=== PATIENT | female | born 1975 | race Caucasian/White ===

== ENCOUNTER → 2017-01-17 | Outpatient (CLI) | payer MEDICARE, MEDICAID ==
[~2017-01-17] MED LIST: ASPI325T4 PO; CARV12.5 PO; CARV3.12T PO; CEFU500T5 PO; CPR500T PO; EFFEXOR PO; FRSM40T PO; FURO40TA4 PO; FURO80TA3 PO; IBUP200C PO; LEVO100T4 PO; LEVO750T6 PO; LEVOTHYROXINE PO; MAGN400T6 PO; MELO-195 PO; METO25TA PO; MGX400T PO; NAPR220T76 PO; OXYC-12 PO; POTA10CA43 PO; TRM50T PO; VENL150C PO; VENL150C53 PO
--- NOTE | 2017-01-17 15:59 | Diagnostic Imaging Report ---
Bilateral diagnostic mammogram. The current study was also evaluated with a Computer Aided Detection (CAD) system. INDICATION: Left breast discharge. COMPARISON: No prior studies are available for comparison. This is a baseline exam. FINDINGS: There is a pacemaker projecting over the left axillary region. The breasts are composed of scattered fibroglandular densities slightly more dense in the outer aspect of each breast. Scattered benign-appearing calcifications are seen. There is no discrete mass or architectural distortion. No suspicious cluster of calcification. IMPRESSION: No mammographic evidence of malignancy. Ultrasound evaluation pending. ACR BI-RADS Category 0: Incomplete. (Needs additional imaging evaluation). Result letter will be mailed to the patient. Note: At least 10% of breast cancer is not imaged by mammography. Dictated by: Dictated on workstation # [id number]
--- NOTE | 2017-01-17 18:16 | Diagnostic Imaging Report ---
EXAMINATION: Left breast ultrasound. INDICATION: Left nipple discharge. FINDINGS: The four quadrants and retroareolar region of the left breast were scanned with no underlying abnormality seen. IMPRESSION: Negative study. Consider cytology evaluation of the nipple discharge, and if needed evaluation with MRI of the breast. ACR BI-RADS Category 1: Negative. Result letter will be mailed to the patient. Note: At least 10% of breast cancer is not imaged by mammography. Dictated by: Dictated on workstation # [id number]
== END ==
LOC: RAD 07:28
PROVIDERS: ATTEND Family Medicine
DX: N64.52 Nipple discharge (principal)
CPT/HCPCS: 76641; 77066

== ENCOUNTER → 2018-01-21 | Outpatient (CLI) | payer MEDICARE, MEDICAID ==
[~2018-01-21] MED LIST changes: +IOHEXOL 350 MG/ML 150 ML (OMNIPAQUE 350) VIAL IV ONE; +NS 250 ML (IVPB) BAG IV ONE
--- NOTE | 2018-01-21 09:29 | Diagnostic Imaging Report ---
PROCEDURE: CT angiography of the chest with contrast. TECHNIQUE: Multiple contiguous axial images were obtained through the chest after uneventful bolus administration of intravenous contrast. Reconstructed CTA MIP acquisitions were also performed. INDICATION: Shortness of breath, hypertension, history of congestive heart failure. CORRELATION STUDY: 02/09/2015. FINDINGS: The heart size is enlarged. A left-sided AICD is present. There is slight ectasia of the ascending aorta, unchanged at 4.2 cm. No intraluminal abnormality. No definitive pulmonary artery filling defect to reflect pulmonary embolism. There is no pathologically enlarged mediastinal and/or hilar lymph nodes. An enlarged thyroid gland is again demonstrated. A large low-density mass of the right lobe appears generally stable measuring 3.4 x 2.8 cm. This does result in some contour deformity and compression upon the trachea. The lung aldana are with groundglass opacities which may be reflective of mild edema. No focal infiltrate. No significant pleural effusion. The visualized portions of the upper abdomen demonstrate gallstones. A calcified gallbladder wall is not excluded. The thoracic spine demonstrates a fusion across T9-T10. IMPRESSION: 1. Cardiac enlargement. 2. Mild groundglass opacities could be reflective of mild edema. No infiltrate. 3. No CT evidence of pulmonary embolism. 4. Right thyroid lobe mass. There has been reported prior biopsy in July 2014. 5. Cholelithiasis. Underlying gallbladder wall calcification, a porcelain gallbladder, is not excluded. Consideration for gallbladder ultrasound imaging is recommended. Dictated by: Dictated on workstation # [id number]
== END ==
LOC: RAD 07:45
PROVIDERS: ATTEND Internal Medicine Cardiovascular Disease
DX: I11.0 Hypertensive heart disease with heart failure (principal); I50.22 Chronic systolic (congestive) heart failure; I51.7 Cardiomegaly; R79.89 Other specified abnormal findings of blood chemistry; F32.9 Major depressive disorder, single episode, unspecified; R06.02 Shortness of breath; R91.8 Other nonspecific abnormal finding of lung field; E07.89 Other specified disorders of thyroid; K57.00 Diverticulitis of small intestine with perforation and abscess without bleeding; K80.00 Calculus of gallbladder with acute cholecystitis without obstruction
CPT/HCPCS: 71275

== ENCOUNTER 2018-10-04 11:19 | Emergency (ER) | payer MEDICARE, MEDICAID ==
[~2018-10-04] VITALS: Ht 149.9 cm; Wt 115.7 kg
[~2018-10-04 11:19] MED LIST changes: -IOHEXOL 350 MG/ML 150 ML (OMNIPAQUE 350) VIAL IV ONE; -NS 250 ML (IVPB) BAG IV ONE
--- OUTSIDE RECORDS SUMMARY | 2018-10-04 11:24 | XMS REPORT ---
Author FAIZA De La Cruz [facility] eClinicalWorks Address Unknown Phone Unavailable Care Team Providers Care Pick Up And Delivery Driver Name Role Phone FAIZA SNIDER CP Unavailable Allergies, Adverse Reactions, Alerts Substance Reaction Event Type JIMMIE inhibitors Info Not Available Non Drug Allergy Problems Problem Type Condition Code Onset Dates Condition Status Assessment Right foot pain M79.671 Active Medications Medication Code System Code Instructions Start Date End Date Status Dosage Mag-Oxide NDC 0 400 MG Orally 2 times a day not defined Carvedilol [facility] [address]-40 12.5 MG Orally 2 times a day not defined Levothyroxine Sodium [facility] [address]-15 100 MCG Orally Once a day 1 [place] [address]-36 80 MG Orally 2 times a day 1 tablet Aspirin [facility] [address]-97 325 MG Orally Once a day 1 tablet Potassium Chloride [facility] [address]-87 10 MEQ Orally Once a day 2 capsule Procedures Procedure Coding System Code Date Office Visit, New Pt., Level 3 CPT-4 07669 Sep 14, 2015 [facility] VISIT NEW PATIENT CPT-4 G0466 Sep 14, 2015 Vital Signs Date/Time: Sep 14, 2015 Temperature 97.7 F Weight 264.2 lbs Height 61 in BMI 49.91 Index Blood Pressure Diastolic 90 mmHg Blood Pressure Systolic 122 mmHg Cardiac Monitoring Heart Rate 88 bpm Results No Known Results Summary Purpose eClinicalWorks Submission
--- OUTSIDE RECORDS SUMMARY | 2018-10-04 11:26 | XMS REPORT | Continuity of Care Document ---
Author Author [facility] Organization [facility] Address Unknown Phone Unavailable Allergies Active Description Code Type Severity Reaction Onset Reported/Identified Relationship to Patient Clinical Status Yes No Known Drug Allergies [id number] Drug Allergy Unknown N/A 08/06/2014 Medications There is no data. Problems Date Dx Coded Attending Type Code Diagnosis Diagnosed By 11/10/2008 Ot 327.23 05/21/2010 Ot 599.0 05/21/2010 Ot 788.1 06/15/2010 Ot 789.09 08/09/2014 SUMI DOAN MD Ot 240.9 08/09/2014 SUMI DOAN MD Ot 244.9 08/09/2014 SUMI DOAN MD Ot 275.2 08/09/2014 SUMI DOAN MD Ot 278.01 08/09/2014 SUMI DOAN MD Ot 311 08/09/2014 SUMI DOAN MD Ot 327.23 08/09/2014 SUMI DOAN MD Ot 401.9 08/09/2014 SUMI DOAN MD Ot 425.4 08/09/2014 SUMI DOAN MD Ot 428.0 08/09/2014 SUMI DOAN MD Ot 428.21 08/09/2014 SUMI DOAN MD Ot 429.89 08/09/2014 SUMI DOAN MD Ot 553.1 08/09/2014 SUMI DOAN MD Ot 574.20 08/09/2014 SUMI DOAN MD Ot V85.43 09/08/2014 Ot 246.9 09/08/2014 Ot 246.9 09/08/2014 Ot 719.49 09/08/2014 Ot 246.9 09/08/2014 Ot 241.0 09/08/2014 Ot 241.0 09/08/2014 Ot 245.9 09/08/2014 Ot 729.5 09/08/2014 Ot 241.0 09/08/2014 Ot 240.9 09/08/2014 Ot 241.0 09/08/2014 COLEEN CAR DO Ot 553.20 09/08/2014 COLEEN CAR DO Ot 789.00 09/08/2014 ОЛЬГА SERNA MD Ot 241.0 09/08/2014 COLEEN CAR DO Ot 780.79 09/08/2014 COLEEN CAR DO Ot 782.3 09/09/2014 DAPHNE VINSON, ОЛЬГА [place] Ot 241.0 09/26/2014 SUMI DOAN MD Ot 327.23 OBSTRUCTIVE SLEEP APNEA (ADULT) (PEDIATR 10/05/2014 FRANKI VINSON, SUMI Greco Ot 396.3 10/05/2014 SUMI DOAN MD Ot 397.0 10/05/2014 SUMI DOAN MD Ot 401.9 10/05/2014 SUMI DOAN MD Ot 428.0 10/05/2014 SUMI DOAN MD Ot 786.05 10/05/2014 SUMI DOAN MD Ot 793.2 10/06/2014 Ot 246.9 10/06/2014 Ot 246.9 10/06/2014 Ot 719.49 10/06/2014 Ot 246.9 10/06/2014 Ot 241.0 10/06/2014 Ot 241.0 10/06/2014 Ot 245.9 10/06/2014 Ot 729.5 10/06/2014 Ot 241.0 10/06/2014 Ot 240.9 10/06/2014 Ot 241.0 10/06/2014 COLEEN CAR DO Ot 553.20 10/06/2014 COLEEN CAR DO Ot 789.00 10/06/2014 ОЛЬГА SERNA MD Ot 242.90 10/06/2014 DAPHNE VINSON, ОЛЬГА [place] Ot 574.20 10/06/2014 ОЛЬГА SERNA MD Ot 780.79 10/06/2014 ОЛЬГА SERNA MD Ot 786.05 10/06/2014 ОЛЬГА SERNA MD Ot 789.00 10/06/2014 DAPHNE VINSON, ОЛЬГА [place] Ot 241.0 10/06/2014 ОЛЬГА SERNA MD Ot 241.0 10/06/2014 COLEEN CAR DO Ot 780.79 10/06/2014 GELLENDER DOCOLEEN Ot 782.3 10/06/2014 GELLENDER DOCOLEEN Ot 553.20 10/06/2014 PINALENDER DOCOLEEN Ot 789.00 10/06/2014 GELLENDER DOCOLEEN Ot 553.20 10/06/2014 PINALENDER DOCOLEEN Ot 789.00 10/06/2014 Ot 246.9 10/06/2014 Ot 246.9 10/06/2014 Ot 719.49 10/06/2014 Ot 246.9 10/06/2014 Ot 241.0 10/06/2014 Ot 241.0 10/06/2014 Ot 245.9 10/06/2014 Ot 729.5 10/06/2014 Ot 241.0 10/06/2014 Ot 240.9 10/06/2014 Ot 241.0 10/06/2014 COLEEN CAR DO Ot 553.20 10/06/2014 PINALENDER COLEEN PRETTY Ot 789.00 10/06/2014 DAPHNE VINSON, ОЛЬГА [place] Ot 241.0 10/06/2014 COLEEN CAR DO Ot 780.79 10/06/2014 PINALENDER COLEEN PRETTY Ot 782.3 10/06/2014 FRANKI VINSON, SUMI Greco Ot 396.3 10/06/2014 FRANKI VINSON, SUMI Greco Ot 397.0 10/06/2014 FRANKI VINSON, SUMI Greco Ot 401.9 10/06/2014 FRANKI VINSON, SUMI Greco Ot 428.0 10/06/2014 FRANKI VINSON, SUMI Greco Ot 786.05 10/06/2014 FRANKI VINSON, SUMI Greco Ot 793.2 10/06/2014 COLEEN CAR DO Ot 553.20 10/06/2014 CARRINGTONDER COLEEN PRETTY Ot 789.00 12/11/2014 Ot 241.0 12/11/2014 Ot 241.0 12/11/2014 Ot 245.9 12/11/2014 Ot 729.5 12/11/2014 Ot 241.0 12/11/2014 Ot 240.9 12/11/2014 Ot 241.0 12/11/2014 CARRINGTONDER COLEEN PRETTY Ot 553.20 12/11/2014 PINALENDER COLEEN PRETTY Ot 789.00 12/11/2014 DAPHNE VINSON, ОЛЬГА [place] Ot 241.0 12/11/2014 COLEEN CAR DO Ot 780.79 12/11/2014 COLEEN CAR DO Ot 782.3 12/11/2014 SUMI DOAN MD Ot 396.3 12/11/2014 SUMI DOAN MD Ot 397.0 12/11/2014 SUMI DOAN MD Ot 401.9 12/11/2014 SUMI DOAN MD Ot 428.0 12/11/2014 SUMI DOAN MD Ot 786.05 12/11/2014 SUMI DOAN MD Ot 793.2 12/16/2014 Ot 244.9 HYPOTHYROIDISM NOS 12/16/2014 Ot 278.01 MORBID OBESITY 12/16/2014 Ot 327.23 OBSTRUCTIVE SLEEP APNEA (ADULT) (PEDIATR 12/16/2014 Ot 396.3 MITRAL/ AORTIC NICK INSUFF 12/16/2014 Ot 401.9 HYPERTENSION NOS 12/16/2014 Ot 425.4 PRIM CARDIOMYOPATHY NEC 12/16/2014 Ot 428.0 CONGESTIVE HEART FAILURE NOS 12/16/2014 Ot 428.22 CHRONIC SYSTOLIC HRT FAILURE 12/16/2014 Ot 786.09 RESPIRATORY ABNORM NEC 12/16/2014 Ot V58.69 OTH MED,LT, CURRENT USE 12/16/2014 Ot V85.42 BODY MASS INDEX 45.0-49.9, ADULT 12/17/2014 SUMI DOAN MD Ot 396.3 12/17/2014 SUMI DOAN MD Ot 397.0 12/17/2014 SUMI DOAN MD Ot 401.9 12/17/2014 SUMI DOAN MD Ot 428.0 12/17/2014 SUMI DOAN MD Ot 786.05 12/17/2014 SUMI DOAN MD Ot 793.2 01/28/2015 SUMI DOAN MD Ot 244.9 HYPOTHYROIDISM NOS 01/28/2015 SUMI DOAN MD Ot 272.4 HYPERLIPIDEMIA NEC/NOS 01/28/2015 SUMI DOAN MD Ot 278.01 MORBID OBESITY 01/28/2015 SUMI DOAN MD Ot 401.9 HYPERTENSION NOS 01/28/2015 SUMI DOAN MD Ot 425.4 PRIM CARDIOMYOPATHY NEC 01/28/2015 SUMI DOAN MD Ot 428.0 CONGESTIVE HEART FAILURE NOS 01/28/2015 FRANKI VINSON, SUMI Greco Ot 428.22 CHRONIC SYSTOLIC HRT FAILURE 01/28/2015 SUMI DOAN MD Ot 782.3 EDEMA 01/28/2015 SUMI DOAN MD Ot 786.50 CHEST PAIN NOS 01/28/2015 SUMI DOAN MD Ot V58.69 OTH MED,LT,CURRENT USE 01/28/2015 SUMI DOAN MD Ot V85.42 BODY MASS INDEX 45.0-49.9, ADULT 02/09/2015 SUMI DOAN MD Ot 396.3 02/09/2015 SUMI DOAN MD Ot 397.0 02/09/2015 SUMI DOAN MD Ot 401.9 02/09/2015 SUMI DOAN MD Ot 428.0 02/09/2015 SUMI DOAN MD Ot 786.05 02/09/2015 SUMI DOAN MD Ot 793.2 03/12/2015 SUMI DOAN MD Ot 240.9 03/12/2015 SUMI DOAN MD Ot 574.20 03/12/2015 SUMI DOAN MD Ot 786.6 03/17/2015 GELLENDER DO, COLEEN A Ot 038.11 03/17/2015 GELLENDER DO, COLEEN A Ot 244.9 03/17/2015 GELLENDER DO, COLEEN A Ot 272.0 03/17/2015 GELLENDER DO, COLEEN Landry Ot 287.5 03/17/2015 GELLENDER DO, COLEEN A Ot 311 03/17/2015 GELLENDER DO, COLEEN A Ot 396.3 03/17/2015 GELLENDER DO, COLEEN A Ot 397.0 03/17/2015 GELLENDER DO, COLEEN A Ot 401.9 03/17/2015 GELLENDER DO, COLEEN A Ot 425.4 03/17/2015 GELLENDER DO, COLEEN A Ot 428.0 03/17/2015 GELLENDER DO, COLEEN A Ot 707.9 03/17/2015 GELLENDER DO, COLEEN A Ot 710.0 03/17/2015 GELLENDER DO, COLEEN A Ot 723.1 03/17/2015 GELLENDER DO, COLEEN A Ot 780.57 03/17/2015 GELLENDER DO, COLEEN A Ot 995.91 03/17/2015 GELLENDER DO, COLEEN A Ot V45.02 03/17/2015 GELLENDER DO, COLEEN A Ot 038.11 03/17/2015 GELLENDER DO, COLEEN A Ot 244.9 03/17/2015 GELLENDER DO, COLEEN A Ot 272.0 03/17/2015 GELLENDER DO, COLEEN A Ot 287.5 03/17/2015 GELLENDER DO, COLEEN A Ot 311 03/17/2015 GELLENDER DO, COLEEN A Ot 396.3 03/17/2015 GELLENDER DO, COLEEN A Ot 397.0 03/17/2015 GELLENDER DO, COLEEN A Ot 401.9 03/17/2015 GELLENDER DO, COLEEN A Ot 425.4 03/17/2015 GELLENDER DO, COLEEN A Ot 428.0 03/17/2015 GELLENDER DO, COLEEN A Ot 707.9 03/17/2015 GELLENDER DO, COLEEN A Ot 710.0 03/17/2015 GELLENDER DO, COLEEN A Ot 723.1 03/17/2015 GELLENDER DO, COLEEN A Ot 780.57 03/17/2015 GELLENDER DO, COLEEN A Ot 995.91 03/17/2015 GELLENDER DO, COLEEN A Ot V45.02 03/18/2015 GELLENDER DO, COLEEN A Ot 038.11 03/18/2015 GELLENDER DO, COLEEN A Ot 244.9 03/18/2015 GELLENDER DO, COLEEN A Ot 272.0 03/18/2015 GELLENDER DO, COLEEN A Ot 287.5 03/18/2015 GELLENDER DO, COLEEN A Ot 311 03/18/2015 GELLENDER DO, COLEEN A Ot 396.3 03/18/2015 GELLENDER DO, COLEEN A Ot 397.0 03/18/2015 GELLENDER DO, COLEEN A Ot 401.9 03/18/2015 GELLENDER DO, COLEEN A Ot 425.4 03/18/2015 GELLENDER DO, COLEEN A Ot 428.0 03/18/2015 GELLENDER DO, COLEEN A Ot 707.9 03/18/2015 GELLENDER DO, COLEEN A Ot 710.0 03/18/2015 GELLENDER DO, COLEEN A Ot 723.1 03/18/2015 GELLENDER DO, COLEEN A Ot 780.57 03/18/2015 GELLENDER DO, COLEEN A Ot 995.91 03/18/2015 GELLENDER DO, COLEEN A Ot V45.02 03/18/2015 GELLENDER DO, COLEEN A Ot 038.11 03/18/2015 GELLENDER DO, COLEEN A Ot 244.9 03/18/2015 GELLENDER DO, COLEEN A Ot 272.0 03/18/2015 GELLENDER DO, COLEEN A Ot 287.5 03/18/2015 GELLENDER DO, COLEEN A Ot 311 03/18/2015 GELLENDER DO, COLEEN A Ot 396.3 03/18/2015 GELLENDER DO, COLEEN A Ot 397.0 03/18/2015 GELLENDER DO, COLEEN A Ot 401.9 03/18/2015 GELLENDER DO, COLEEN A Ot 425.4 03/18/2015 GELLENDER DO, COLEEN A Ot 428.0 03/18/2015 GELLENDER DO, COLEEN A Ot 707.9 03/18/2015 GELLENDER DO, COLEEN A Ot 710.0 03/18/2015 GELLENDER DO, COLEEN A Ot 723.1 03/18/2015 GELLENDER DO, COLEEN A Ot 780.57 03/18/2015 GELLENDER DO, COLEEN A Ot 995.91 03/18/2015 GELLENDER DO, COLEEN A Ot V45.02 03/18/2015 GELLENDER DO, COLEEN A Ot 038.11 03/18/2015 GELLENDER DO, COLEEN A Ot 244.9 03/18/2015 GELLENDER DO, COLEEN A Ot 272.0 03/18/2015 GELLENDER DO, COLEEN A Ot 287.5 03/18/2015 GELLENDER DO, COLEEN A Ot 311 03/18/2015 GELLENDER DO, COLEEN A Ot 396.3 03/18/2015 GELLENDER DO, COLEEN A Ot 397.0 03/18/2015 GELLENDER DO, COLEEN A Ot 401.9 03/18/2015 GELLENDER DO, COLEEN A Ot 425.4 03/18/2015 GELLENDER DO, COLEEN A Ot 428.0 03/18/2015 GELLENDER DO, COLEEN A Ot 707.9 03/18/2015 GELLENDER DO, COLEEN A Ot 710.0 03/18/2015 GELLENDER DO, COLEEN A Ot 723.1 03/18/2015 GELLENDER DO, COLEEN A Ot 780.57 03/18/2015 GELLENDER DO, COLEEN A Ot 995.91 03/18/2015 GELLENDER DO, COLEEN A Ot V45.02 03/19/2015 GELLENDER DO, COLEEN A Ot 038.11 03/19/2015 GELLENDER DO, COLEEN A Ot 244.9 03/19/2015 GELLENDER DO, COLEEN A Ot 272.0 03/19/2015 GELLENDER DO, COLEEN A Ot 287.5 03/19/2015 GELLENDER DO, COLEEN A Ot 311 03/19/2015 GELLENDER DO, COLEEN A Ot 396.3 03/19/2015 GELLENDER DO, COLEEN A Ot 397.0 03/19/2015 GELLENDER DO, COLEEN A Ot 401.9 03/19/2015 GELLENDER DO, COLEEN A Ot 425.4 03/19/2015 GELLENDER DO, COLEEN A Ot 428.0 03/19/2015 GELLENDER DO, COLEEN A Ot 707.9 03/19/2015 GELLENDER DO, COLEEN A Ot 710.0 03/19/2015 GELLENDER DO, COLEEN A Ot 723.1 03/19/2015 GELLENDER DO, COLEEN A Ot 780.57 03/19/2015 GELLENDER DO, COLEEN A Ot 995.91 03/19/2015 GELLENDER DO, COLEEN A Ot V45.02 03/19/2015 GELLENDER DO, COLEEN A Ot 038.11 03/19/2015 GELLENDER DO, COLEEN A Ot 244.9 03/19/2015 GELLENDER DO, COLEEN A Ot 272.0 03/19/2015 GELLENDER DO, COLEEN A Ot 287.5 03/19/2015 GELLENDER DO, COLEEN A Ot 311 03/19/2015 GELLENDER DO, COLEEN A Ot 396.3 03/19/2015 GELLENDER DO, COLEEN A Ot 397.0 03/19/2015 GELLENDER DO, COLEEN A Ot 401.9 03/19/2015 GELLENDER DO, COLEEN A Ot 425.4 03/19/2015 GELLENDER DO, COLEEN A Ot 428.0 03/19/2015 GELLENDER DO, COLEEN A Ot 707.9 03/19/2015 GELLENDER DO, COLEEN A Ot 710.0 03/19/2015 GELLENDER DO, COLEEN A Ot 723.1 03/19/2015 GELLENDER DO, COLEEN A Ot 780.57 03/19/2015 GELLENDER DO, COLEEN A Ot 995.91 03/19/2015 GELLENDER DO, COLEEN A Ot V45.02 03/19/2015 FRANKI VINSON, SUMI Greco Ot 240.9 03/19/2015 FRANKI VINSON, SUMI Greco Ot 574.20 03/19/2015 FRANKI VINSON, SUMI Greco Ot 786.6 03/19/2015 GELLENDER DO, COLEEN A Ot 038.11 03/19/2015 GELLENDER DO, COLEEN A Ot 244.9 03/19/2015 GELLENDER DO, COLEEN A Ot 272.0 03/19/2015 GELLENDER DO, COLEEN A Ot 287.5 03/19/2015 GELLENDER DO, COLEEN A Ot 311 03/19/2015 GELLENDER DO, COLEEN A Ot 396.3 03/19/2015 GELLENDER DO, COLEEN A Ot 397.0 03/19/2015 GELLENDER DO, COLEEN A Ot 401.9 03/19/2015 GELLENDER DO, COLEEN A Ot 425.4 03/19/2015 GELLENDER DO, COLEEN A Ot 428.0 03/19/2015 GELLENDER DO, COLEEN A Ot 707.9 03/19/2015 GELLENDER DO, COLEEN A Ot 710.0 03/19/2015 GELLENDER DO, COLEEN A Ot 723.1 03/19/2015 GELLENDER DO, COLEEN A Ot 780.57 03/19/2015 GELLENDER DO, COLEEN A Ot 995.91 03/19/2015 GELLENDER DO, COLEEN A Ot V45.02 03/20/2015 GELLENDER DO, COLEEN A Ot 038.11 03/20/2015 GELLENDER DO, COLEEN A Ot 244.9 03/20/2015 GELLENDER DO, COLEEN A Ot 272.0 03/20/2015 GELLENDER DO, COLEEN A Ot 287.5 03/20/2015 GELLENDER DO, COLEEN A Ot 311 03/20/2015 GELLENDER DO, COLEEN A Ot 396.3 03/20/2015 GELLENDER DO, COLEEN A Ot 397.0 03/20/2015 GELLENDER DO, COLEEN A Ot 401.9 03/20/2015 GELLENDER DO, COLEEN Landry Ot 425.4 03/20/2015 GELLENDER DO, COLEEN Landry Ot 428.0 03/20/2015 GELLENDER DO, COLEEN Landry Ot 707.9 03/20/2015 GELLENDER DO, COLEEN Landry Ot 710.0 03/20/2015 GELLENDER DO, COLEEN Landry Ot 723.1 03/20/2015 GELLENDER DO, COLEEN Landry Ot 780.57 03/20/2015 GELLENDER DO, COLEEN Landry Ot 995.91 03/20/2015 GELLENDER DO, COLEEN Landry Ot V45.02 03/20/2015 GELLENDER DO, COLEEN Landry Ot 038.11 METHICILLIN SUSCEPTIBLE STAPHYLOCOCCUS A 03/20/2015 GELLENDER DO, COLEEN Landry Ot 244.9 HYPOTHYROIDISM NOS 03/20/2015 GELLENDER DO, COLEEN Landry Ot 272.0 PURE HYPERCHOLESTEROLEM 03/20/2015 GELLENDER DO, COLEEN Landry Ot 278.01 MORBID OBESITY 03/20/2015 GELLENDER DO, COLEEN Landry Ot 287.5 THROMBOCYTOPENIA NOS 03/20/2015 GELLENDER DO, COLEEN Landry Ot 311 DEPRESSIVE DISORDER NEC 03/20/2015 GELLENDER DO, COLEEN Landry Ot 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 03/20/2015 GELLENDER DO, COLEEN Landry Ot 397.0 TRICUSPID VALVE DISEASE 03/20/2015 GELLENDER DO, COLEEN Landry Ot 401.9 HYPERTENSION NOS 03/20/2015 GELLENDER DO, COLEEN Landry Ot 425.4 PRIM CARDIOMYOPATHY NEC 03/20/2015 GELLENDER DO, COLEEN Landry Ot 428.0 CONGESTIVE HEART FAILURE NOS 03/20/2015 GELLENDER DO, COLEEN Landry Ot 682.2 CELLULITIS OF TRUNK 03/20/2015 GELLENDER DO, COLEEN Landry Ot 682.6 CELLULITIS OF LEG 03/20/2015 GELLENDER DO, COLEEN Landry Ot 707.8 CHRONIC SKIN ULCER NEC 03/20/2015 GELLENDER DO, COLEEN Landry Ot 707.9 03/20/2015 GELLENDER DO, COLEEN Landry Ot 710.0 SYST LUPUS ERYTHEMATOSIS 03/20/2015 GELLENDER DO, COLEEN Landry Ot 723.1 CERVICALGIA 03/20/2015 GELLENDER DO, COLEEN Landry Ot 780.57 UNSPECIFIED SLEEP APNEA 03/20/2015 GELLENDER DO, COLEEN Landry Ot 995.91 SEPSIS 03/20/2015 COLEEN CAR DO Ot V45.02 AUTO IMPLANTABLE CARDIAC DEFIBRILLATOR I 03/20/2015 COLEEN CAR DO Ot V85.42 BODY MASS INDEX 45.0-49.9, ADULT 03/26/2015 ALVIN ALEXANDER DO Ot 327.23 OBSTRUCTIVE SLEEP APNEA (ADULT) (PEDIATR 03/31/2015 COLEEN CAR DO Ot 553.20 03/31/2015 CARRINGTONCOLEEN GARZA DO Ot 789.00 04/05/2015 FRANKI VINSON, SUMI Greco Ot 240.9 04/05/2015 FRANKI VINSON, SUMI Greco Ot 574.20 04/05/2015 FRANKI VINSON, SUMI Greco Ot 786.6 04/21/2015 Ot 244.9 04/21/2015 Ot 252.00 04/21/2015 Ot 285.9 04/21/2015 Ot 244.9 04/21/2015 Ot 252.00 04/21/2015 Ot 285.9 04/21/2015 Ot 241.0 04/21/2015 Ot 241.0 04/21/2015 Ot 246.9 04/21/2015 Ot 246.9 04/21/2015 Ot 719.49 04/21/2015 Ot 246.9 04/21/2015 Ot 241.0 04/21/2015 Ot 241.0 04/21/2015 Ot 245.9 04/21/2015 Ot 729.5 04/21/2015 Ot 241.0 04/21/2015 Ot 240.9 04/21/2015 Ot 241.0 04/21/2015 FRANKI VINSON, SUMI Greco Ot 396.3 04/21/2015 FRANKI VINSON, SUMI Greco Ot 397.0 04/21/2015 FRANKI VINSON, SUMI Greco Ot 401.9 04/21/2015 FRANKI VINSON, SUMI Greco Ot 428.0 04/21/2015 FRANKI VINSON, SUMI Greco Ot 786.05 04/21/2015 FRANKI VINSON, SUMI Greco Ot 793.2 04/21/2015 FRANKI VINSON, SUMI Greco Ot 240.9 04/21/2015 FRANKI VINSON, SUMI Greco Ot 574.20 04/21/2015 FRANKI VINSON, SUMI Greco Ot 786.6 04/21/2015 FERCHO VINSON, SARIKA [place]on Ot 682.2 04/21/2015 SARIKA BRANTELY MD Ot 682.6 04/27/2015 SARIKA BRANTLEY MD Ot 278.01 MORBID OBESITY 04/27/2015 SARIKA BRANTLEY MD Ot 682.2 CELLULITIS OF TRUNK 04/27/2015 SARIKA BRANTLEY MD Ot 682.6 CELLULITIS OF LEG 04/27/2015 SARIKA BRANTLEY MD Ot V85.42 BODY MASS INDEX 45.0-49.9, ADULT 09/23/2015 SUMI DOAN MD Ot 396.3 09/23/2015 SUMI DOAN MD Ot 397.0 09/23/2015 SUMI DOAN MD Ot 401.9 09/23/2015 SUMI DOAN MD Ot 428.0 09/23/2015 SUMI DOAN MD Ot 786.05 09/23/2015 SUMI DOAN MD Ot 793.2 09/23/2015 SUMI DOAN MD Ot 240.9 09/23/2015 SUMI DOAN MD Ot 574.20 09/23/2015 SUMI DOAN MD, Ot 786.6 10/13/2015 COLEEN CAR DO, Ot M79.671 10/21/2015 COLEEN CAR DO, Ot M79.671 01/17/2017 SUMI DOAN MD Ot 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 01/17/2017 SUMI DOAN MD Ot 397.0 TRICUSPID VALVE DISEASE 01/17/2017 SUMI DOAN MD Ot 401.9 HYPERTENSION NOS 01/17/2017 SUMI DOAN MD Ot 428.0 CONGESTIVE HEART FAILURE NOS 01/17/2017 SUMI DOAN MD Ot 786.05 SHORTNESS OF BREATH 01/17/2017 SUMI DOAN MD Ot 793.2 NOSP (ABN) FINDINGS ON RADIOLOGICAL OT 01/17/2017 SUMI DOAN MD Ot 240.9 GOITER NOS 01/17/2017 SUMI DOAN MD Ot 574.20 CHOLELITHIASIS NOS 01/17/2017 SUMI DOAN MD Ot 786.6 CHEST SWELLING/MASS/LUMP 01/17/2017 COLEEN CAR DO, Ot M79.671 PAIN IN RIGHT FOOT 01/17/2017 COLEEN CAR DO Ot N64.52 NIPPLE DISCHARGE 01/17/2017 GELLENDER DO, COLEEN Landry Ot N64.52 NIPPLE DISCHARGE 01/17/2017 GELLENDER , COLEEN Landry Ot N64.52 NIPPLE DISCHARGE 01/18/2017 GELLENDER DO, COLEEN Landry Ot N64.52 NIPPLE DISCHARGE 02/08/2017 GELLENDER , COLEEN Landry Ot N64.52 NIPPLE DISCHARGE 02/14/2017 GELLENDER , COLEEN Landry Ot N64.52 NIPPLE DISCHARGE 01/21/2018 SUMI DOAN MD Ot 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 01/21/2018 SUMI DOAN MD Ot 397.0 TRICUSPID VALVE DISEASE 01/21/2018 SUMI DOAN MD Ot 401.9 HYPERTENSION NOS 01/21/2018 SUMI DOAN MD Ot 428.0 CONGESTIVE HEART FAILURE NOS 01/21/2018 SUMI DOAN MD Ot 786.05 SHORTNESS OF BREATH 01/21/2018 SUMI DOAN MD Ot 793.2 NOSP (ABN) FINDINGS ON RADIOLOGICAL OT 01/21/2018 SUMI DOAN MD Ot 240.9 GOITER NOS 01/21/2018 SUMI DOAN MD Ot 574.20 CHOLELITHIASIS NOS 01/21/2018 SUMI DOAN MD Ot 786.6 CHEST SWELLING/MASS/LUMP 01/21/2018 COLEEN CAR DO Ot M79.671 PAIN IN RIGHT FOOT 01/21/2018 COLEEN CAR DO Ot N64.52 NIPPLE DISCHARGE 01/22/2018 SUMI DOAN MD Ot E07.89 OTHER SPECIFIED DISORDERS OF THYROID 01/22/2018 SUMI DOAN MD Ot F32.9 MAJOR DEPRESSIVE DISORDER, SINGLE EPISOD 01/22/2018 SUMI DOAN MD Ot I11.0 HYPERTENSIVE HEART DISEASE WITH HEART FA 01/22/2018 SUMI DOAN MD Ot I50.22 CHRONIC SYSTOLIC (CONGESTIVE) HEART FAIL 01/22/2018 SUMI DOAN MD Ot I51.7 CARDIOMEGALY 01/22/2018 SUMI DOAN MD Ot K57.00 DVTRCLI OF SM INT W PERFORATION AND ABSC 01/22/2018 SUMI DOAN MD Ot K80.00 CALCULUS OF GALLBLADDER W ACUTE CHOLECYS 01/22/2018 SUMI DOAN MD Ot R06.02 SHORTNESS OF BREATH 01/22/2018 SUMI DOAN MD Ot R79.89 OTHER SPECIFIED ABNORMAL FINDINGS OF BLO 01/22/2018 SUMI DOAN MD Ot R91.8 OTHER NONSPECIFIC ABNORMAL FINDING OF AUNDREA 02/13/2018 SUMI DOAN MD Ot E07.89 OTHER SPECIFIED DISORDERS OF THYROID 02/13/2018 SUMI DOAN MD Ot F32.9 MAJOR DEPRESSIVE DISORDER, SINGLE EPISOD 02/13/2018 SUMI DOAN MD Ot I11.0 HYPERTENSIVE HEART DISEASE WITH HEART FA 02/13/2018 SUMI DOAN MD Ot I50.22 CHRONIC SYSTOLIC (CONGESTIVE) HEART FAIL 02/13/2018 SUMI DOAN MD Ot I51.7 CARDIOMEGALY 02/13/2018 SUMI DOAN MD Ot K57.00 DVTRCLI OF SM INT W PERFORATION AND ABSC 02/13/2018 SUMI DOAN MD Ot K80.00 CALCULUS OF GALLBLADDER W ACUTE CHOLECYS 02/13/2018 SUMI DOAN MD Ot R06.02 SHORTNESS OF BREATH 02/13/2018 SUMI DOAN MD Ot R79.89 OTHER SPECIFIED ABNORMAL FINDINGS OF BLO 02/13/2018 SUMI DOAN MD Ot R91.8 OTHER NONSPECIFIC ABNORMAL FINDING OF AUNDREA 03/01/2018 SUMI DOAN MD Ot E07.89 OTHER SPECIFIED DISORDERS OF THYROID 03/01/2018 SUMI DOAN MD Ot F32.9 MAJOR DEPRESSIVE DISORDER, SINGLE EPISOD 03/01/2018 SUMI DOAN MD Ot I11.0 HYPERTENSIVE HEART DISEASE WITH HEART FA 03/01/2018 SUMI DOAN MD Ot I50.22 CHRONIC SYSTOLIC (CONGESTIVE) HEART FAIL 03/01/2018 SUMI DOAN MD Ot I51.7 CARDIOMEGALY 03/01/2018 SUMI DOAN MD Ot K57.00 DVTRCLI OF SM INT W PERFORATION AND ABSC 03/01/2018 SUMI DOAN MD Ot K80.00 CALCULUS OF GALLBLADDER W ACUTE CHOLECYS 03/01/2018 SUMI DOAN MD Ot R06.02 SHORTNESS OF BREATH 03/01/2018 SUMI DOAN MD Ot R79.89 OTHER SPECIFIED ABNORMAL FINDINGS OF BLO 03/01/2018 SUMI DOAN MD Ot R91.8 OTHER NONSPECIFIC ABNORMAL FINDING OF AUNDREA 10/03/2018 JOSEP PRETTY COLEEN Gris Ot N64.52 NIPPLE DISCHARGE 10/03/2018 SUMI DOAN MD Ot E07.89 OTHER SPECIFIED DISORDERS OF THYROID 10/03/2018 SUMI DOAN MD Ot F32.9 MAJOR DEPRESSIVE DISORDER, SINGLE EPISOD 10/03/2018 SUMI DOAN MD Ot I11.0 HYPERTENSIVE HEART DISEASE WITH HEART FA 10/03/2018 SUMI DOAN MD Ot I50.22 CHRONIC SYSTOLIC (CONGESTIVE) HEART FAIL 10/03/2018 SUMI DOAN MD Ot I51.7 CARDIOMEGALY 10/03/2018 SUMI DOAN MD, Ot K57.00 DVTRCLI OF SM INT W PERFORATION AND ABSC 10/03/2018 SUMI DOAN MD Ot K80.00 CALCULUS OF GALLBLADDER W ACUTE CHOLECYS 10/03/2018 SUMI DOAN MD Ot R06.02 SHORTNESS OF BREATH 10/03/2018 SUMI DOAN MD Ot R79.89 OTHER SPECIFIED ABNORMAL FINDINGS OF BLO 10/03/2018 SUMI DOAN MD Ot R91.8 OTHER NONSPECIFIC ABNORMAL FINDING OF AUNDREA Procedures Code Description Performed By Performed On 01.19 SPINAL TAP 03/12/2015 Results There is no data. Encounters ACCT No. Visit Date/Time Discharge Status Pt. Type Provider Facility Loc./Unit Complaint [id number] 04/18/2018 14:48:00 04/18/2018 23:59:59 CLS Preadmit SUMI DOAN MD Via [facility] CARD ABNORMAL EKG,CHF,HTN [id number] 01/21/2018 07:45:00 01/21/2018 23:59:59 CLS Outpatient SUMI DOAN MD [facility] RAD I50.22 CHF [id number] 04/30/2017 13:32:00 04/30/2017 23:59:59 CLS Preadmit RICHA WYNN [facility] CARD CHF I50.22, HTN I10 [id number] 01/17/2017 07:28:00 01/17/2017 23:59:59 CLS Outpatient COLEEN CAR DO [facility] RAD LEAK FROM LEFT NIPPLE [id number] 09/23/2015 16:53:00 09/23/2015 23:59:59 CLS Outpatient COLEEN CAR DO [facility] RAD LT FOOT PAIN, [id number] 04/27/2015 10:46:00 04/27/2015 12:00:00 DIS Outpatient SARIKA BRANTLEY MD [facility] WOUNDCARE [id number] 03/25/2015 20:00:00 03/26/2015 06:25:00 DIS Outpatient ALVIN ALEXANDER DO [facility] SLEEP TAMI [id number] 03/12/2015 15:04:00 03/20/2015 13:55:00 DIS Inpatient COLEEN CAR DO [facility] 4TH SEPSIS,FEVER UNKNOWN ORIGIN [id number] 02/09/2015 08:08:00 02/09/2015 23:59:59 CLS Outpatient SUMI DOAN MD [facility] RAD LUNG MASS [id number] 01/27/2015 08:56:00 01/28/2015 10:00:00 DIS Outpatient SUMI DOAN MD [facility] CATH NON ISCHEMIC CARDIOMYOPATHY HTN MORBID OBESITY [id number] 09/25/2014 21:00:00 09/26/2014 07:10:00 DIS Outpatient SUMI DOAN MD [facility] SLEEP TAMI [id number] 09/08/2014 08:38:00 09/08/2014 23:59:59 CLS Outpatient SUMI DOAN MD [facility] CARD CHF,SOB,HTN [id number] 08/08/2014 11:20:00 08/09/2014 13:10:00 DIS Inpatient SUMI DOAN MD [facility] CSD [id number] 07/30/2014 13:36:00 07/30/2014 23:59:59 CLS Outpatient ОЛЬГА SERNA MD [facility] RAD [id number] 07/29/2014 16:35:00 07/29/2014 23:59:59 CLS Outpatient CARRINGTONCOLEEN GARZA DO [facility] LAB [id number] 07/27/2014 09:49:00 07/27/2014 23:59:59 CLS Outpatient ОЛЬГА SERNA MD [facility] RAD [id number] 07/23/2014 10:25:00 07/23/2014 23:59:59 CLS Outpatient ОЛЬГА SERNA MD [facility] RAD [id number] 06/10/2014 08:33:00 06/10/2014 23:59:59 CLS Outpatient JOSEP COLEEN PRETTY [facility] RAD [id number] 04/09/2013 13:15:00 04/09/2013 23:59:59 CLS Outpatient RICK GUSMAN [facility] [id number] 04/21/2015 14:41:00 Document Registration [id number] 04/21/2015 14:41:00 Document Registration [id number] 04/21/2015 14:41:00 Document Registration [id number] 04/21/2015 14:41:00 Document Registration [id number] 04/21/2015 14:41:00 Document Registration [id number] 04/21/2015 14:41:00 Document Registration [id number] 02/09/2015 09:45:00 Document Registration [id number] 12/16/2014 07:50:00 Document Registration [id number] 03/06/2012 11:27:00 Document Registration [id number] 01/31/2012 10:57:00 Document Registration [id number] 01/10/2012 12:29:00 Document Registration [id number] 05/31/2011 17:14:00 Document Registration [id number] 06/15/2010 20:58:00 Document Registration [id number] 05/21/2010 22:35:00 Document Registration [id number] 11/05/2009 15:45:00 Document Registration [id number] 10/07/2009 10:37:00 Document Registration [id number] 09/27/2009 14:10:00 Document Registration [id number] 05/13/2009 13:14:00 Document Registration [id number] 04/29/2009 15:46:00 Document Registration [id number] 04/28/2009 14:49:00 Document Registration [id number] 12/28/2008 09:50:00 Document Registration [id number] 12/24/2008 10:40:00 Document Registration [id number] 11/09/2008 19:58:00 Document Registration [id number] 10/06/2008 14:41:00 Document Registration [id number] 04/27/2015 10:47:15 ACT Document Registration
--- NOTE | 2018-10-04 11:53 | ED Trauma-Multisystem ---
General Chief Complaint: Trauma-Non Activation Stated Complaint: FALL;BACK/TAILBONE PAIN Nursing Triage Note: Pt ambulated to triage rm. Pt reports falling face first down seven steps last night. Pt reports pain in mid back and neck. Pt denies hitting head, but pt reports, "everything went black." Pt numbness or pain in legs. Pt denies bowel or bladder issues. Source of Information: Patient Exam Limitations: No Limitations History of Present Illness Date Seen by Provider: Oct 04, 2018 Time Seen by Provider: 11:50 Initial Comments Patient is a 42-year-old female who presents to the emergency room with complaints of middle to lower back pain after a fall down 7 stairs last night. She reports that she was walking down the stairs when she missed a step and rolled down 7 additional steps. She denies hitting her head, loss of consciousness, neck pain, or other injuries from the incident. She denies any loss of bowel or bladder. Has some numbness and tingling in bilateral upper legs. Location Injury Occurred: [facility] Occurred: Yesterday Pain/Injury Location: Back Method of Injury: Fall Modifying Factors: No Movement Loss of Consciousness: No Loss of Consciousness Associated Symptoms (Fall): Denies Symptoms Allergies and Home Medications Allergies Coded Allergies: No Known Drug Allergies (Unverified , 08/06/14) Home Medications Aspirin 325 Mg Tab, 325 MG PO DAILY @ 1200, (Reported) Carvedilol 12.5 Mg Tablet, 12.5 MG PO BID, (Reported) Furosemide 80 Mg Tablet, 80 MG PO BID, (Reported) Levofloxacin 750 Mg Tablet, 750 MG PO DAILY Prescribed by: COLEEN CAR on 03/19/15 0746 Levothyroxine Sodium 100 Mcg Tablet, 100 MCG PO DAILY, (Reported) Magnesium Oxide 400 Mg Tablet, 400 MG PO BID, (Reported) Potassium Chloride 10 Meq Capsule.sa, 10 MEQ PO BID, (Reported) Venlafaxine Hcl 150 Mg Cap.sr.24h, 150 MG PO HS, (Reported) Patient Home Medication List Home Medication List Reviewed: Yes Review of Systems Review of Systems Constitutional: no symptoms reported, see HPI Musculoskeletal: see HPI, back pain All Other Systems Reviewed Negative Unless Noted: Yes Past Ojiwpie-Rueeen-Avxelq Hx Past Med/Social Hx: Reviewed Nursing Past Med/Soc Hx Patient Social History Alcohol Use: Denies Use Recreational Drug Use: No 2nd Hand Smoke Exposure: No Recent Foreign Travel: No Contact w/Someone Who Travel: No Recent Infectious Disease Expo: No Immunizations Up To Date Date of Pneumonia Vaccine: Dec 16, 2014 Date of Influenza Vaccine: Sep 15, 2014 Seasonal Allergies Seasonal Allergies: No Past Medical History Surgeries: Yes (HERNIA REPAIR (6 YEARS OLD)) Section, Defibrillator Respiratory: Yes (SCHED FOR SLEEP STUDY) Sleep Apnea Cardiac: Yes (HEART FAILURE, DXZ OF AORTIC, MITRAL, AND TRISCUSPID) Cardiomyopathy, Chronic Edema/Swelling, High Cholesterol, Hypertension, Valvular Heart Disease Neurological: No Last Menstrual Period: Oct 02, 2018 Reproductive Disorders: No Gastrointestinal: Yes Gall Bladder Disease Musculoskeletal: No Endocrine: Yes (POSSIBLE LUPUS OR(DIFFERENT DIAGNOSES), GOITER) Hypothyroidsim, Lupus Loss of Vision: Denies Hearing Impairment: Denies Cancer: No Psychosocial: Yes Depression Integumentary: Yes (MULT REDDENED AREAS/SCABS/SORES) Blood Disorders: No Adverse Reaction/Blood Tranf: No Family Medical History Reviewed Nursing Family Hx Alcoholism 19 FATHER FHx: congestive heart failure 19 FATHER GRANDMOTHER Hypertension 19 MOTHER G8 BROTHER G8 BROTHER Thyroid disease AUNT Physical Exam Vital Signs Vital Signs - First Documented 10/04/18 11:27 Temp 98.4 Pulse 68 Resp 15 B/P (MAP) 138/65 (89) Pulse Ox 99 O2 Delivery Room Air Height, Weight, BMI Height: 4'11.00" Weight: 255lbs. 8.0oz. 115.827070jf; BMI Method:Stated General Appearance: No Apparent Distress, WD/WN Head: No Evidence of Injury Neck: Full Range of Motion, Normal Inspection, Non Tender, Supple Cardiovascular: Regular Rate, Rhythm, No Edema, No Gallop, No JVD, No Murmur, Normal Peripheral Pulses Respiratory: Chest Non Tender, Lungs Clear, Normal Breath Sounds, No Accessory Muscle Use, No Respiratory Distress Back: Normal Inspection, No CVA Tenderness, Vertebral Tenderness (thoracic and lumbar tenderness), Other (ecchymosis to her thoracic and lumbar spine) Extremity: Normal Capillary Refill, Normal Inspection, Normal Range of Motion, No Pedal Edema Neurologic/Psychiatric: Alert, Oriented x3, Normal Mood/Affect Skin: Normal Color, Warm/Dry [place] Coma Score Best Eye Response ([place]): (4) Open Spontaneously Best Verbal Response ([place]): (5) Oriented Best Motor Response ([place]): (6) Obeys Commands [place] Total: 15 Progress/Results/Core Measures Results/Orders My Orders Orders - MOON BENAVIDES Ct Thoracic/Lumbar Spine Wo (10/04/18 11:49) Ketorolac Injection (Toradol Injection) (10/04/18 12:00) Medications Given in ED Current Medications Medications Dose Ordered Sig/[place] Route Start Time Stop Time Status Last Admin Dose Admin Ketorolac Tromethamine 60 mg ONCE ONCE IM 10/04/18 12:00 10/04/18 12:01 DC 10/04/18 11:55 60 MG Vital Signs/I&O 10/04/18 10/04/18 11:27 13:00 Temp 98.4 98.4 Pulse 68 68 Resp 15 14 B/P (MAP) 138/65 (89) 0/0 (0) Pulse Ox 99 99 O2 Delivery Room Air Blood Pressure Mean: 89 Progress Progress Note : Time: 12:56 Progress Note I have seen and evaluated the patient. I have informed her of her normal imaging studies. She has has mild improvement after medication. She agrees with plan of care, plans for discharge, return precautions were given. Diagnostic Imaging Diagonstic Imaging: CT Plain Films/CT/US/NM/MRI: other (thoracic and lumbar spine) Comments [facility], [place] NAME: RUKHSANA ULLOA [facility] REC#: [id number] PT STATUS: REG ER : 1975 PHYSICIAN: MOON BENAVIDES [facility] ADMIT DATE: 10/04/18/ER Draft Date of Exam:10/04/18 CT THORACIC/LUMBAR SPINE WO EXAMINATION: CT THORACIC/LUMBAR SPINE WO TECHNIQUE: Unenhanced CT imaging of the thoracic and lumbar spine was performed. Sagittal and coronal reformats are created and submitted for interpretation. INDICATION: Back pain after fall down stairs. COMPARISON: None available. FINDINGS: Normal kyphosis of the thoracic spine and normal lordosis of the lumbar spine. No traumatic subluxation. 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 No compression or burst fracture within the thoracic or lumbar spine. The posterior elements are intact. Visualized lungs are clear. No pleural effusion. Visualized aspects of the retroperitoneum are unremarkable. Cholecystectomy. Partially imaged IUD within the visualized uterus. IMPRESSION: No fracture or malalignment in the thoracic or lumbar spine. Dictated on workstation # [id number] Dict: 10/04/18 1235 Trans: 10/04/18 1250 [id number] Interpreted by: KAYCEE HAYNES MD Electronically signed by: Reviewed: Reviewed by Me Departure Impression Primary Impression: Back pain Additional Impression: Fall down stairs Disposition: 01 HOME, SELF-CARE Condition: Stable Departure-Patient Inst. Decision time for Depature: 12:56 Referrals: COLEEN CAR DO (PCP/Family) Primary Care Physician Patient Instructions: Low Back Pain (DC) Add. Discharge Instructions: You may continue to use ibuprofen and Tylenol as needed for pain relief. Follow- up with your primary care provider within 1 week as needed. Alternating ice and heat to the sore areas might be beneficial for pain relief. Return back to the emergency room for any worsening symptoms or concerns as needed. All discharge instructions reviewed with patient and/or family. Voiced understanding. Work/School Note: Work Release Form Date Seen in the Emergency Department: Oct 04, 2018 Return to Work: Oct 05, 2018 Other Restrictions Listed Below: Light Duty for 3 days. MOON BENAVIDES Oct 04, 2018 11:53
[2018-10-04] MEDS ORDERED: KETOROLAC 60 MG/2 ML VIAL IM ONE (12:00)
--- NOTE | 2018-10-04 12:50 | Diagnostic Imaging Report ---
EXAMINATION: CT THORACIC/LUMBAR SPINE WO TECHNIQUE: Unenhanced CT imaging of the thoracic and lumbar spine was performed. Sagittal and coronal reformats are created and submitted for interpretation. INDICATION: Back pain after fall down stairs. COMPARISON: None available. FINDINGS: Normal kyphosis of the thoracic spine and normal lordosis of the lumbar spine. No traumatic subluxation. 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 No compression or burst fracture within the thoracic or lumbar spine. The posterior elements are intact. Visualized lungs are clear. No pleural effusion. Visualized aspects of the retroperitoneum are unremarkable. Cholecystectomy. Partially imaged IUD within the visualized uterus. IMPRESSION: No fracture or malalignment in the thoracic or lumbar spine. Dictated by: Dictated on workstation # [id number]
[2018-10-04 13:00] VITALS: BP 0/0
== END 2018-10-04 13:00 | disposition home or self-care (01) ==
LOC: EDUNIT# 11:19 → ER 11:20
DX: M54.5 Low back pain (principal); G47.30 Sleep apnea, unspecified; I42.9 Cardiomyopathy, unspecified; E78.00 Pure hypercholesterolemia, unspecified; I10 Essential (primary) hypertension; I73.9 Peripheral vascular disease, unspecified; E03.9 Hypothyroidism, unspecified; F32.9 Major depressive disorder, single episode, unspecified; I25.2 Old myocardial infarction; R40.2142 Coma scale, eyes open, spontaneous, at arrival to emergency department; R40.2252 Coma scale, best verbal response, oriented, at arrival to emergency department; R40.2362 Coma scale, best motor response, obeys commands, at arrival to emergency department; Z95.810 Presence of automatic (implantable) cardiac defibrillator; Z87.448 Personal history of other diseases of urinary system; Z82.49 Family history of ischemic heart disease and other diseases of the circulatory system; W10.8XXA Fall (on) (from) other stairs and steps, initial encounter; Y92.252 Music hall as the place of occurrence of the external cause
CPT/HCPCS: 72128; 72131

== ENCOUNTER 2019-01-24 16:31 | Emergency (ER) | payer MEDICARE, MEDICAID ==
[~2019-01-24] VITALS: Ht 149.9 cm; Wt 113.4 kg
[2019-01-24] MEDS ORDERED: PRD20T PO (17:09)
--- NOTE | 2019-01-24 17:09 | ED Integumentary General ---
General Chief Complaint: Allergic Reaction Stated Complaint: RASH Nursing Triage Note: PT CO OF RASH ON TORSO AND FACE, PT STATES FROM CLINDAMYCIN, WAS TAKING IT QUIT TAKING ON . PT HAS HAD TEETH PULLED THIS WEEK Source: patient Exam Limitations: no limitations History of Present Illness Date Seen by Provider: Jan 24, 2019 Time Seen by Provider: 17:06 Initial Comments 43-year-old female who presents to the emergency room with complaints of a rash on her hands, face, torso. She reports that the rash started after starting her clindamycin that she was put on after a dental extraction this week(Sunday). She was instructed to stop taking the antibiotic by her dentist but was not placed on any other antibiotics. She has not had any other pain or swelling in her mouth. She has been off of the clindamycin for one day. Timing/Duration: week Location: face, torso, hands Associated Symptoms: denies symptoms Allergies and Home Medications Allergies Coded Allergies: clindamycin (Verified Allergy, Mild, RASH, 01/24/19) Home Medications Aspirin 325 Mg Tab, 325 MG PO DAILY @ 1200, (Reported) Carvedilol 12.5 Mg Tablet, 12.5 MG PO BID, (Reported) Furosemide 80 Mg Tablet, 80 MG PO BID, (Reported) Levothyroxine Sodium 100 Mcg Tablet, 100 MCG PO DAILY, (Reported) Magnesium Oxide 400 Mg Tablet, 400 MG PO BID, (Reported) Potassium Chloride 10 Meq Capsule.sa, 10 MEQ PO BID, (Reported) Prednisone 20 Mg Tab, 40 MG PO DAILY Prescribed by: MOON BENAVIDES on 01/24/19 1709 Venlafaxine Hcl 150 Mg Cap.sr.24h, 150 MG PO HS, (Reported) Patient Home Medication List Home Medication List Reviewed: Yes Review of Systems Review of Systems Constitutional: see HPI; No chills, No fever Skin: see HPI, rash All Other Systems Reviewed Negative Unless Noted: Yes Past Jkckxxx-Smmjtf-Rgqgib Hx Past Med/Social Hx: Reviewed Nursing Past Med/Soc Hx Patient Social History Alcohol Use: Denies Use Recreational Drug Use: No Smoking Status: Never a Smoker Type Used: Cigarettes 2nd Hand Smoke Exposure: No Recent Foreign Travel: No Contact w/Someone Who Travel: No Recent Infectious Disease Expo: No Recent Hopitalizations: No Immunizations Up To Date Date of Pneumonia Vaccine: Dec 16, 2014 Date of Influenza Vaccine: Sep 15, 2014 Seasonal Allergies Seasonal Allergies: No Past Medical History Surgeries: Yes (HERNIA REPAIR (6 YEARS OLD)) Section, Defibrillator Respiratory: Yes (SCHED FOR SLEEP STUDY) Sleep Apnea Cardiac: Yes (HEART FAILURE, DXZ OF AORTIC, MITRAL, AND TRISCUSPID) Cardiomyopathy, Chronic Edema/Swelling, High Cholesterol, Hypertension, Valvular Heart Disease Neurological: No Last Menstrual Period: Jan 17, 2019 Reproductive Disorders: No Gastrointestinal: Yes Gall Bladder Disease Musculoskeletal: No Endocrine: Yes (POSSIBLE LUPUS OR(DIFFERENT DIAGNOSES), GOITER) Hypothyroidsim, Lupus Loss of Vision: Denies Hearing Impairment: Denies Cancer: No Psychosocial: Yes Depression Integumentary: Yes (MULT REDDENED AREAS/SCABS/SORES) Blood Disorders: No Adverse Reaction/Blood Tranf: No Family Medical History Reviewed Nursing Family Hx Alcoholism 19 FATHER FHx: congestive heart failure 19 FATHER GRANDMOTHER Hypertension 19 MOTHER G8 BROTHER G8 BROTHER Thyroid disease AUNT Physical Exam Vital Signs Vital Signs - First Documented 01/24/19 16:50 Temp 97.4 Pulse 71 Resp 18 B/P (MAP) 137/84 (101) Pulse Ox 97 Capillary Refill : Less Than 3 Seconds General Appearance: WD/WN, no apparent distress Cardiovascular: normal peripheral pulses, regular rate, rhythm, no edema, no gallop, no JVD, no murmur Respiratory: chest non-tender, lungs clear, normal breath sounds, no respiratory distress, no accessory muscle use Skin: normal color, warm/dry Skin Problem Location: face, upper extremities, torso, lower extremities Skin Problem Character: rash Lymphatic: no adenopathy Progress/Results/Core Measures Results/Orders My Orders Orders - MOON BENAVIDES Diphenhydramine Tablet (Benadryl Tablet) (01/24/19 17:15) Prednisone Tablet (Deltasone Tablet) (01/24/19 17:15) Vital Signs/I&O 01/24/19 01/24/19 16:50 17:17 Temp 97.4 97.4 Pulse 71 70 Resp 18 18 B/P (MAP) 137/84 (101) 135/82 (99) Pulse Ox 97 97 Blood Pressure Mean: 101 Departure Impression Primary Impression: allergic reaction to clindamycin Disposition: 01 HOME, SELF-CARE Condition: Stable/Unchanged Departure-Patient Inst. Decision time for Depature: 17:07 Referrals: COLEEN CAR DO (PCP/Family) Primary Care Physician Patient Instructions: Drug Allergy Add. Discharge Instructions: Take medications as prescribed. You may use [id number] Benadryl as directed by the bottle. Return back to the emergency room for worsening symptoms , shortness of breath, tongue swelling, or any other concerns as needed. All discharge instructions reviewed with patient and/or family. Voiced understanding. Scripts Prednisone (Prednisone) 20 Mg Tab 40 MG PO DAILY, #8 TAB Prov: MOON BENAVIDES 01/24/19 MOON BENAVIDES Jan 24, 2019 17:09
[2019-01-24] MEDS ORDERED: predniSONE 20 MG TAB PO ONE (17:15)
[2019-01-24] MEDS ORDERED: diphenhydrAMINE 25 MG TAB (BENADRYL) PO ONE (17:15)
[2019-01-24 17:17] VITALS: BP 135/82
== END 2019-01-24 17:16 | disposition home or self-care (01) ==
LOC: EDUNIT# 16:31 → ER 16:32
DX: R21 Rash and other nonspecific skin eruption (principal); T36.8X5A Adverse effect of other systemic antibiotics, initial encounter; G47.30 Sleep apnea, unspecified; I11.0 Hypertensive heart disease with heart failure; I50.9 Heart failure, unspecified; I42.9 Cardiomyopathy, unspecified; E78.00 Pure hypercholesterolemia, unspecified; E03.9 Hypothyroidism, unspecified; M32.9 Systemic lupus erythematosus, unspecified; F32.9 Major depressive disorder, single episode, unspecified; Z87.448 Personal history of other diseases of urinary system; Z88.1 Allergy status to other antibiotic agents; Z79.82 Long term (current) use of aspirin; Z82.49 Family history of ischemic heart disease and other diseases of the circulatory system; Z98.890 Other specified postprocedural states; Z95.810 Presence of automatic (implantable) cardiac defibrillator
CPT/HCPCS: 99283

== ENCOUNTER → 2019-02-06 | Outpatient (CLI) | payer MEDICARE, MEDICAID ==
[~2019-02-06] MED LIST changes: +PRD20T PO
== END ==
LOC: CARD 08:38
PROVIDERS: ATTEND Physician Assistant
DX: I11.0 Hypertensive heart disease with heart failure (principal); I50.22 Chronic systolic (congestive) heart failure; G47.33 Obstructive sleep apnea (adult) (pediatric); E66.01 Morbid (severe) obesity due to excess calories
CPT/HCPCS: 93306

== ENCOUNTER → 2020-11-25 | Outpatient (CLI) | payer MEDICARE, MEDICAID ==
--- NOTE | 2020-11-25 13:30 | Diagnostic Imaging Report ---
PROCEDURE: CT urinary tract, rule out kidney stone. TECHNIQUE: Multiple contiguous axial images were obtained through the abdomen and pelvis without the use of intravenous contrast. Auto Exposure Controls were utilized during the CT exam to meet ALARA standards for radiation dose reduction. INDICATION: Right-sided posterior back pain and hematuria. Patient has prior history of kidney stones. COMPARISON: No prior studies are available for comparison. FINDINGS: Lung bases are clear. The liver is unremarkable. The gallbladder is stone filled. No biliary ductal dilatation is seen. Pancreas and spleen are unremarkable. No adrenal mass is detected. No definite renal calculi or evidence of hydronephrosis is identified. No ureteral or bladder calculi are detected. Aorta is nonaneurysmal. Small and large bowel loops are normal caliber. There is moderate stool in the colon. There is diverticulosis of the sigmoid but no evidence for acute diverticulitis. Small bowel is normal caliber. There is no free fluid or fluid collection. Uterus contains an IUD. There is a midline fat containing ventral hernia. No herniated bowel loops are detected. Bony structures demonstrate a sclerotic lesion of the right iliac bone measuring 2.5 cm in size, indeterminate. Patient appeared to have a sclerotic lesion on pelvis x-ray from 2009 and therefore this is likely benign. IMPRESSION: 1. Cholelithiasis. 2. No evidence of urinary tract calculi or obstruction. 3. Fat-containing midline ventral hernia. 4. Uncomplicated diverticulosis. Dictated by: Dictated on workstation # [id number]
== END ==
LOC: RAD 12:46
PROVIDERS: ATTEND Family Medicine
DX: K80.20 Calculus of gallbladder without cholecystitis without obstruction (principal); K43.9 Ventral hernia without obstruction or gangrene; K57.30 Diverticulosis of large intestine without perforation or abscess without bleeding
CPT/HCPCS: 74176

== ENCOUNTER → 2020-11-29 | Outpatient (CLI) | payer MEDICARE, MEDICAID ==
--- NOTE | 2020-11-29 12:54 | Diagnostic Imaging Report ---
PROCEDURE: US Gallbladder. TECHNIQUE: Multiple real-time grayscale images were obtained over the right upper quadrant in various projections. INDICATION: Abdominal pain. FINDINGS: Liver is upper limits of normal in size at 17.8 cm. There is increased echogenicity throughout the liver consistent with hepatic steatosis. No discrete liver mass is detected. Portal vein is patent and shows normal direction of flow. The gallbladder does contain multiple stones. No wall thickening or biliary ductal dilatation is seen. Pancreas is unremarkable. Proximal aorta is nonaneurysmal. Mid and distal aorta were poorly visualized due to overlying bowel gas. Right kidney is without calculi or hydronephrosis. There is no ascites. IMPRESSION: 1. Hepatic steatosis. 2. Cholelithiasis without evidence of acute cholecystitis. Dictated by: Dictated on workstation # [id number]
== END ==
LOC: RAD 12:00
PROVIDERS: ATTEND Family Medicine
DX: K76.0 Fatty (change of) liver, not elsewhere classified (principal); K80.20 Calculus of gallbladder without cholecystitis without obstruction
CPT/HCPCS: 76705

== ENCOUNTER → 2021-01-27 | Outpatient (CLI) | payer MEDICARE, MEDICAID ==
--- NOTE | 2021-01-27 14:45 | Diagnostic Imaging Report ---
INDICATION: Injury to left hand. TIME OF EXAM: 01:57 p.m. EXAMINATION: Three views of the left hand were obtained. FINDINGS: Metacarpals appear to be intact. The phalanges are intact. No fractures are seen. Carpus is unremarkable. IMPRESSION: No acute bony abnormality is detected. Dictated by: Dictated on workstation # [id number]
== END ==
LOC: RAD 13:34
PROVIDERS: ATTEND Family Medicine
DX: S69.92XA Unspecified injury of left wrist, hand and finger(s), initial encounter (principal); X58.XXXA Exposure to other specified factors, initial encounter
CPT/HCPCS: 73130

== ENCOUNTER → 2021-08-16 | Outpatient (CLI) | payer MEDICARE, MEDICAID ==
--- NOTE | 2021-08-16 12:40 | Diagnostic Imaging Report ---
Indication: Routine screening. Comparison is made with prior mammogram 01/17/2017. 2-D and 3-D bilateral screening mammography was performed with CAD. Both breasts remain heterogeneously dense, limiting the sensitivity of mammography. There are benign calcifications bilaterally. No mass or malignant-appearing microcalcifications are seen. Pacemaker battery pack left axilla is again noted. IMPRESSION: BI-RADS Category 2 No mammographic features suspicious for malignancy are identified. ACR BI-RADS Category 2: Benign findings. Result letter will be mailed to the patient. Note: At least 10% of breast cancer is not imaged by mammography. Dictated by: Dictated on workstation # [id number]
== END ==
LOC: RAD 10:30
PROVIDERS: ATTEND Obstetrics & Gynecology
DX: Z12.31 Encounter for screening mammogram for malignant neoplasm of breast (principal); Z95.0 Presence of cardiac pacemaker
CPT/HCPCS: 77063; 77067

== ENCOUNTER → 2022-03-27 | Outpatient (CLI) | payer MEDICARE, MEDICAID ==
--- NOTE | 2022-03-27 14:54 | Diagnostic Imaging Report ---
INDICATION: Pain after fall. 3 views were obtained. FINDINGS: There is moderate 3 compartment osteoarthritic change in the left knee. There is no fracture or dislocation. No joint effusion. IMPRESSION: Moderate 3 compartment osteoarthritic change. Dictated by: Dictated on workstation # [id number]
== END ==
LOC: RAD 14:07
PROVIDERS: ATTEND Family Medicine
DX: M17.12 Unilateral primary osteoarthritis, left knee (principal)
CPT/HCPCS: 73562

== ENCOUNTER → 2022-05-11 | Outpatient (CLI) | payer MEDICARE, MEDICAID ==
--- NOTE | 2022-05-11 12:52 | Diagnostic Imaging Report ---
Indication: Injury to the 5th toe. Time of Exam: 11:59 AM 3 views of the right 5th toe were obtained. There is a fracture of the proximal phalanx of the 5th toe. The fracture is located distally and there is very slight dorsal displacement of the distal fracture fragment. The middle and distal phalanx appear intact. Visualized 5th metatarsal appears intact. Impression: Proximal phalangeal fracture of the 5th toe, as described. Dictated by: Dictated on workstation # [id number]
== END ==
LOC: RAD 11:39
PROVIDERS: ATTEND Family Medicine
DX: S92.911A Unspecified fracture of right toe(s), initial encounter for closed fracture (principal); X58.XXXA Exposure to other specified factors, initial encounter
CPT/HCPCS: 73660

== ENCOUNTER → 2022-09-29 | Outpatient (CLI) | payer MEDICARE, MEDICAID | LOC: CARD 13:31 | PROVIDERS: ATTEND Internal Medicine Cardiovascular Disease | DX: I10 Essential (primary) hypertension (principal) | CPT/HCPCS: 93306 ==

== ENCOUNTER 2022-12-22 12:09 | Emergency (ER) | payer MEDICARE, MEDICAID ==
[~2022-12-22] VITALS: Ht 149.9 cm; Wt 117.9 kg
[2022-12-22 12:29] LABS: BILIRUBIN,URINE NEGATIVE (NEGATIVE); CLARITY,URINE CLEAR; COLOR,URINE YELLOW; GLUCOSE, URINE (UA) NEGATIVE (NEGATIVE); KETONES,URINE NEGATIVE (NEGATIVE); LEUKOCYTE ESTERASE ,URINE TRACE (NEGATIVE); NITRITE,URINE NEGATIVE (NEGATIVE); PROTEIN,URINE NEGATIVE (NEGATIVE)
[2022-12-22] MEDS ORDERED: HYDROcodone/APAP 7.5 MG/325 MG (LORTAB, LORCET PLUS) TABLET PO STA (12:29)
--- NOTE | 2022-12-22 12:35 | ED Back Pain ---
General Stated Complaint: LOWER BACK PAIN Source of Information: Patient Exam Limitations: No Limitations (KULWANT SAAVEDRA) History of Present Illness Date Seen by Provider: Dec 22, 2022 Time Seen by Provider: 12:29 Initial Comments Patient is a 47-year-old female with a history of CHF, pacemaker, kidney stones who presents ED with right posterior hip pain. Patient states yesterday she read received a steroid injection into her right hip, right lower back. She did get some relief until last night. Start developing a sharp pain worse with standing. She has had this pain in her back and hip for the past week. History of sciatica. She states this feels like 'sciatica'. No recent falls. Denies of any bowel or urine cons, saddle paresthesia, dysuria. She reports chronic hematuria with a history of kidney stones. She denies of any lower leg weakness, fever, chills, body aches. She believes a steroid injection was in her hip. She denies epidural injection. She is scheduled for left knee arthroscopy by Dr. Lau on the . Patient denies chest pain, shortness of breath, cough, Edward pain, vomiting, diarrhea (KULWANT SAAVEDRA) Allergies and Home Medications Allergies Coded Allergies: clindamycin (Verified Allergy, Mild, RASH, 01/24/19) Patient Home Medication List Home Medication List Reviewed: Yes (KULWANT SAAVEDRA) Aspirin (Aspirin Tab) 325 Mg Tab, 325 MG PO DAILY @ 1200, (Reported) Entered as Reported by: AQUILINO HERNADEZ on 12/16/14 09 Carvedilol (Coreg Tablet) 12.5 Mg Tablet, 12.5 MG PO BID, (Reported) Entered as Reported by: AQUILINO HERNADEZ on 12/16/14 0940 Furosemide (Furosemide) 80 Mg Tablet, 80 MG PO BID, (Reported) Entered as Reported by: AQUILINO HERNADEZ on 12/16/14 0940 Hydrocodone/Acetaminophen (Hydrocodone-Acetamin 5-325 mg) 5 Mg-325 Mg Tablet, 1 TAB PO Q4H PRN for PAIN-MODERATE (5-7) Prescribed by: MALKA TALLEY on 12/22/22 1347 Levothyroxine Sodium (Levothyroxine Sodium) 100 Mcg Tablet, 100 MCG PO DAILY, ( Reported) Entered as Reported by: KALLI AGARWAL on 08/06/14 1330 Magnesium Oxide (Mag Ox 400) 400 Mg Tablet, 400 MG PO BID, (Reported) Entered as Reported by: AQUILINO HERNADEZ on 12/16/14 0942 Potassium Chloride (Potassium Chloride) 10 Meq Capsule.sa, 10 MEQ PO BID, (Reported) Entered as Reported by: AQUILINO HERNADEZ on 12/16/14 0940 Prednisone (Prednisone) 20 Mg Tab, 40 MG PO DAILY Prescribed by: MOON BENAVIDES on 01/24/19 1709 Venlafaxine Hcl (Effexor Xr) 150 Mg Cap.sr.24h, 150 MG PO HS, (Reported) Entered as Reported by: AQUILINO HERNADEZ on 12/16/14 0942 Review of Systems Constitutional: No chills, No diaphoresis, No fever, No malaise EENTM: No blurred vision, No double vision Respiratory: No cough, No short of breath Cardiovascular: No chest pain, No syncope Gastrointestinal: No abdominal pain Genitourinary: No decreased output Musculoskeletal: back pain, joint pain; No joint swelling, No muscle pain Skin: No change in color, No change in hair/nails (KULWANT SAAVEDRA) All Other Systems Reviewed Negative Unless Noted: Yes (KULWANT SAAVEDRA) Past Teknigj-Mhgfyc-Ffgbut Hx Seasonal Allergies Seasonal Allergies: No (KULWATN SAAVEDRA) Past Medical History Surgeries: Yes (HERNIA REPAIR (6 YEARS OLD)) Section, Defibrillator Respiratory: Yes (SCHED FOR SLEEP STUDY) Sleep Apnea Cardiac: Yes (HEART FAILURE, DXZ OF AORTIC, MITRAL, AND TRISCUSPID) Cardiomyopathy, Chronic Edema/Swelling, High Cholesterol, Hypertension, Valvular Heart Disease Neurological: No Reproductive Disorders: No Gastrointestinal: Yes Gall Bladder Disease Musculoskeletal: No Endocrine: Yes (POSSIBLE LUPUS OR(DIFFERENT DIAGNOSES), GOITER) Hypothyroidsim, Lupus Loss of Vision: Denies Hearing Impairment: Denies Cancer: No Psychosocial: Yes Depression Integumentary: Yes (MULT REDDENED AREAS/SCABS/SORES) Blood Disorders: No Adverse Reaction/Blood Tranf: No (KULWANT SAAVEDRA) Family Medical History Alcoholism 19 FATHER FHx: congestive heart failure 19 FATHER GRANDMOTHER Hypertension 19 MOTHER G8 BROTHER G8 BROTHER Thyroid disease AUNT Physical Exam Vital Signs Vital Signs - First Documented 12/22/22 12/22/22 12:18 14:08 Temp 36.3 Pulse 83 Resp 19 B/P (MAP) 180/104 (129) Pulse Ox 98 O2 Delivery Room Air (TAWANDA ARRIETA MD) Vital Signs Capillary Refill : (KULWANT SAAVEDRA) Height, Weight, BMI Height: 4'11.00" Weight: 250lbs. 8.0oz. 113.048759gr; BMI Method:Actual General Appearance: No Apparent Distress, WD/WN HEENT: PERRL/EOMI, TMs Normal, Normal ENT Inspection, Pharynx Normal Neck: Full Range of Motion, Normal Inspection, Non Tender, Supple Cardiovascular: Regular Rate, Rhythm, No Edema, No Gallop, No JVD Respiratory: Chest Non Tender, Lungs Clear, Normal Breath Sounds, No Accessory Muscle Use Gastrointestinal: Normal Bowel Sounds, No Organomegaly, No Pulsatile Mass, Non Tender, Soft Back: Normal Inspection, No CVA Tenderness, No Vertebral Tenderness Extremity: Other (Tenderness to palpate right posterior hip. Normal active range of motion with discomfort with chantelle test. ) Neurologic/Psychiatric: Alert, Oriented x3, No Motor/Sensory Deficits, Normal Mood/Affect, dietary assistant II-XII Norm as Tested Skin: Normal Color, Warm/Dry (KULWANT SAAVEDRA) Progress/Results/Core Measures Results/Orders Lab Results Laboratory Tests Test 12/22/22 12:20 Range/Units Urine Color YELLOW Urine Clarity CLEAR Urine pH 8.0 5-9 Urine Specific [place] 1.010 L 1.016-1.022 Urine Protein NEGATIVE NEGATIVE Urine Glucose (UA) NEGATIVE NEGATIVE Urine Ketones NEGATIVE NEGATIVE Urine Nitrite NEGATIVE NEGATIVE Urine Bilirubin NEGATIVE NEGATIVE Urine Urobilinogen 0.2 < = 1.0 MG/DL Urine Leukocyte Esterase TRACE H NEGATIVE Urine RBC (Auto) TRACE-I H NEGATIVE Urine RBC 0-2 /HPF Urine WBC 0-2 /HPF Urine Squamous Epithelial Cells 2-5 /HPF Urine Crystals PRESENT H /LPF Urine Amorphous Sediment FEW MACARIO PHOSPHATE H /LPF Urine Bacteria FEW H /HPF Urine Casts NONE /LPF Urine Mucus NEGATIVE /LPF Urine Culture Indicated YES Urine Test NEGATIVE NEGATIVE (TAWANDA ARRIETA MD) Medications Given in ED Current Medications Medications Dose Ordered Sig/[place] Route Start Time Stop Time Status Last Admin Dose Admin Ketorolac Tromethamine 30 mg ONCE ONCE IM 12/22/22 12:45 12/22/22 12:46 DC 12/22/22 12:42 30 MG Orphenadrine Citrate 60 mg ONCE ONCE IM 12/22/22 12:45 12/22/22 12:46 DC 12/22/22 12:42 60 MG (TAWANDA ARRIETA MD) Vital Signs/I&O 12/22/22 12/22/22 12:18 14:08 Temp 36.3 Pulse 83 70 Resp 19 B/P (MAP) 180/104 (129) 158/91 Pulse Ox 98 O2 Delivery Room Air (TAWANDA ARRIETA MD) Departure Communication (PCP) Patient is a 47-year-old female presents ED with right lower back, right posterior hip pain. Denies of any fall. Pain over the past week. She states she received a cortisone injection yesterday. Do noted a area of bruising to the right posterior hip. Unclear if this is a posterior intra-articular injection. She denies of any epidural injections. This was performed by Dr. Hills. She states she did get some relief initially but the pain returned. She reports pain to the right buttock, right posterior hip, right lower back. Denies of any urinary symptoms, bowel or urine incontinence, saddle paresthesia. No neurological red flag findings. History of kidney stones, gallstone . Urinalysis did note some mild hematuria without evidence of infection. She reports history of hematuria. abdominal x-ray without strong evidence of kidney stone. Gallstones noted. Stool noted throughout. She has no abdominal tenderness, fever, vomiting, diarrhea. This appears to be more musculoskeletal related. Discussed anti-inflammatories. Provided a few days worth of pain medication. Continue with stretching, weight restrictions,, ice, heat. Discussed all this in significant detail. Reviewed previous imaging, H&P's, previous ER visits. Return precautions were discussed with the patient. (KULWANT SAAVEDRA) Impression Primary Impression: Hip pain Additional Impression: Back pain Disposition: 01 HOME, SELF-CARE Condition: Stable Departure-Patient Inst. Decision time for Depature: 13:18 (KULWANT SAAVEDRA) Referrals: [facility] (PCP/Family) Primary Care Physician Patient Instructions: Hip Pain (DC), Low Back Pain ED Scripts Hydrocodone/Acetaminophen (Hydrocodone-Acetamin 5-325 mg) 5 Mg-325 Mg Tablet 1 TAB PO Q4H PRN for PAIN-MODERATE (5-7), #8 TAB Prov: KULWANT SAAVEDRA 12/22/22 ATTENDING PHYSICIAN NOTE: I was physically present as attending physician in the emergency department during the care of this patient, but I was not directly involved in the decision making or delivery of care for this patient. (TAWANDA ARRIETA MD) KULWANT SAAVEDRA Dec 22, 2022 12:35 TAWANDA ARRIETA MD Dec 22, 2022 19:27
[2022-12-22 12:44] LABS: AMORPHOUS SEDIMENT,UR FEW AMOR PHOSPHATE /LPF; BACTERIA,URINE FEW /HPF; RBC,URINE 0-2 /HPF; WBC,URINE 0-2 /HPF
[2022-12-22] MEDS ORDERED: ORPHENADRINE 60 MG/2 ML (NORFLEX) AMP (ED ONLY) IM ONE (12:45)
[2022-12-22] MEDS ORDERED: KETOROLAC 30 MG/ML VIAL IM ONE (12:45)
[2022-12-22] MEDS ORDERED: ACHD5005 PO (13:47)
--- NOTE | 2022-12-22 14:00 | Diagnostic Imaging Report ---
ABDOMEN/KUB 1VIEW INDICATION: Right flank pain COMPARISON: None available. TECHNIQUE: Supine AP view of the abdomen. FINDINGS: Nonobstructive bowel gas pattern. Rounded lucencies in the right upper quadrant could represent gallstones versus less likely renal stones. IUD is noted within the pelvis. Large burden of colonic stool. Mild degenerative changes of the hips. IMPRESSION: 1. Right upper quadrant calcifications are most compatible with the patient's known gallstones. 2. No radiographically apparent renal stones. 3. Large burden of colonic stool. Dictated by: Dictated on workstation # [id number]
[2022-12-22 14:08] VITALS: BP 158/91
== END 2022-12-22 14:10 | disposition home or self-care (01) ==
LOC: EDUNIT# 12:09 → ER 12:13
DX: M25.551 Pain in right hip (principal); M54.50 Low back pain, unspecified; Z28.310 Unvaccinated for COVID-19
CPT/HCPCS: 74018; 81000; 84703; 87088

== ENCOUNTER 2023-02-07 05:32 | Outpatient (CLI) | payer MEDICARE, MEDICAID ==
[~2023-02-07] VITALS: Ht 151 cm; Wt 121.0 kg
[~2023-02-07 05:32] MED LIST changes: +ACHD5005 PO
== END 2023-02-07 14:58 | disposition home or self-care (01) ==
LOC: PREOP 05:32
PROVIDERS: ATTEND Orthopaedic Surgery
DX: Z01.818 Encounter for other preprocedural examination (principal)

== ENCOUNTER 2023-02-14 06:59 | Day surgery (SDC) | payer MEDICARE, MEDICAID ==
--- NOTE | 2023-02-07 08:31 | HISTORY AND PHYSICAL ---
HISTORY: The patient is a 47-year-old female with progressively worsening left anterior knee pain, catching, locking, and swelling. She reports pain that is worse with kneeling and squatting. She has tried anti-inflammatories as well as injections with only temporary relief of her symptoms. Due to functional impairment and failure to improve with conservative measures, the patient elected to proceed with surgical intervention. REVIEW OF SYSTEMS No chest pain. No shortness of breath. No dysuria. PAST MEDICAL HISTORY: Hypothyroidism, heart disease, pacemaker placement and DiGeorge syndrome. PAST SURGICAL HISTORY: Herniorrhaphy, , pacemaker. FAMILY HISTORY: Significant for hypertension. PRIMARY CARE PROVIDER: Yi. MEDICATIONS: Potassium, magnesium, levothyroxine, furosemide, Effexor and carvedilol. ALLERGIES: LISINOPRIL AND JIMMIE INHIBITORS. SOCIAL HISTORY: The patient denies alcohol and tobacco use. RADIOGRAPHS: Severe near complete loss of patellofemoral joint space with moderate medial and lateral joint space narrowing. PHYSICAL EXAMINATION: GENERAL: The patient is well-developed, well-nourished, in no acute distress. HEENT: Normocephalic, atraumatic. Pupils are equal, round and reactive to light. Oropharynx is clear. NECK: Supple. No lymphadenopathy. LUNGS: Clear to auscultation bilaterally. HEART: Regular rate and rhythm. ABDOMEN: Soft, nontender, nondistended. EXTREMITIES: The left knee demonstrates moderate effusion. She has patellofemoral crepitus and pain with patellar loading. Range of motion 0/3/120. No varus or valgus laxity. Negative anterior and posterior drawer. She ambulates with an antalgic gait. 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 PLAN: Left knee arthroscopy with partial meniscectomy and chondroplasty. The risks, benefits, options, ramifications and recovery have been discussed at length with the patient. She understands and wishes to proceed. Job ID: [id number] DocumentID: [id number] Dictated Date: 02/01/2023 14:55:34 Dramatic Agent Date: 02/01/2023 17:03:00 Dictated By: SARIKA BARRIGA MD
[2023-02-14] VITALS (11 sets, daily range): BP systolic 102–154; BP diastolic 63–80
[~2023-02-14] VITALS: Ht 151 cm; Wt 121.0 kg
[2023-02-14] MEDS ORDERED: ceFAZolin INJECTION 2,000 MG in NS (IVPB) 50 ML IV ONE (07:15)
[2023-02-14] MEDS ORDERED: morphine PF (DURAMORPH) 10 MG/10 ML AMP ONE (07:21)
[2023-02-14] MEDS ORDERED: BUPIVACAINE 0.25% 30 ML (SENSORCAINE) VIAL ONE (07:21)
--- NOTE | 2023-02-14 07:29 | Progress Note-Post Operative ---
Post-Operative Progess Note Surgeon (s)/Compilation Clerk (s) Surgeon SARIKA BARRIGA MD Compilation Clerk: Jack Mariano Pre-Operative Diagnosis left knee medial meniscus tear and chondromalacia Post-Operative Diagnosis left knee lateral meniscus tear and chondromalacia of the medial femoral and medial and lateral tibial plateaus Procedure & Operative Findings Date of Procedure 02/14/23 Procedure Performed/Findings left knee arthroscopic partial medial meniscectomy and chondroplasty of the medial femoral condyle and medial and lateral tibial plateaus Anesthesia Type GETA Estimated Blood Loss Estimated blood loss (mL): minimal Specimens/Packing Specimens Removed none Packing: none SARIKA BARRIGA MD Feb 14, 2023 07:29
--- NOTE | 2023-02-14 07:29 | Progress Note-Pre Operative ---
Pre-Operative Progress Note Date of Available H&P: Feb 01, 2023 Date H&P Reviewed: Feb 14, 2023 Time H&P Reviewed: 07:11 Changes from last HP none Pre-Operative Diagnosis: left knee medial meniscus tear and chondromalacia SARIKA BARRIGA MD Feb 14, 2023 07:28
[2023-02-14] MEDS ORDERED: HYDROcodone/APAP 7.5 MG/325 MG (LORTAB, LORCET PLUS) TABLET PO PRN (07:30)
[2023-02-14] MEDS ORDERED: CATHETER FLUSH 10 ML SYR IVP PRN (07:30)
[2023-02-14] MEDS: LACTATED RINGERS 1,000 ML IV PRN ×2 (07:39→08:49)
[2023-02-14] MEDS ORDERED: ONDANSETRON 4 MG/2 ML (SDV) Z0FRAN ONE (07:40)
[2023-02-14] MEDS ORDERED: proPOfol 200 MG/20 ML (DIPRIVAN) VIAL IV ONE (07:40)
[2023-02-14] MEDS ORDERED: SEVOFLURANE (ULTANE) 15 ML INHAL SOLN ONE (07:40)
[2023-02-14] MEDS ORDERED: MIDAZOLAM 2 MG/2 ML (VERSED) VIAL ONE (07:40)
[2023-02-14] MEDS ORDERED: fentaNYL INJ 100 MCG/2 ML AMP ONE (07:40)
[2023-02-14] MEDS ORDERED: LIDOCAINE PF 2% 5 ML (XYLOCAINE) VIAL ONE (07:40)
[2023-02-14] MEDS ORDERED: morphine PF (DURAMORPH) 10 MG/10 ML AMP INJ ONE (08:40)
[2023-02-14] MEDS ORDERED: BUPIVACAINE 0.25% 30 ML (SENSORCAINE) VIAL INJ ONE (08:42)
--- NOTE | 2023-02-14 09:03 | Anesthesia-General Post-Op ---
General Patient Condition Mental Status/LOC: Same as Preop Cardiovascular: Satisfactory Nausea/Vomiting: Absent Respiratory: Satisfactory Pain: Controlled Complications: Absent Post Op Complications Complications None Follow Up Care/Instructions Patient Instructions None needed. Anesthesia/Patient Condition Patient Condition Patient is doing well, no complaints, stable vital signs, no apparent adverse anesthesia problems. No complications reported per nursing. NEO GARNER CRNA Feb 14, 2023 09:03
[2023-02-14] MEDS ORDERED: MEPERIDINE (DEMEROL) INJ 50 MG/ML IVP ONE (09:15)
[2023-02-14] MEDS ORDERED: morphine INJ 10 MG/ML 1ML (SYR OR VIAL) IVP ONE (09:15)
[2023-02-14] MEDS ORDERED: ONDANSETRON 4 MG/2 ML (SDV) Z0FRAN IVP PRN (09:15)
[2023-02-14] MEDS ORDERED: morphine INJ 10 MG/ML 1ML (SYR OR VIAL) ONE (09:18)
--- NOTE | 2023-02-14 15:39 | Physical Therapy Ortho Eval ---
PT Orthopedic Evaluation Type of Surgery Knee Scope Prior Level of Function Current Living Status: Spouse Locomotion (Upon Admit): Independent Established Durable Medical Eq: None Subjective Subjective Patient sitting on EOB upon PT arrival, agreeable to treatment. Patient rates pain at 8-9/10 currently. Entry Into Home: Stairs With Railing Steps Into Home: 2 Motor Control Motor Control: Motor Control WNL ROM ROM: WFL, except focal deficit Strength Strength: Gen Weak,No Focal Deficit Transfer SCALE: Activities may be completed with or without assistive devices. 5-Harvpeijiq-ppjtqpx completes the activity by him/herself with no assistance from a helper. 5-Set-up or Clean-up Assistance-helper sets up or cleans up; patient completes activity. [place] assists only prior to or following the activity. 4-Supervision or Touching Assistance-helper provides verbal cues and/or touching/steadying and/or contact guard assistance as patient completes activity. Assistance may be provided throughout the activity or intermittently. 3-Partial/Moderate Assistance-helper does LESS THAN HALF the effort. [place] lifts, holds or supports trunk or limbs, but provides less than half the effort. 2-Substantial/Maximal Assistance-helper does MORE THAN HALF the effort. [place] lifts or holds trunk or limbs and provides more than half the effort. 9-Hacrklfse-sgbxym does ALL the effort. Patient does none of the effort to complete the activity. Or, the assistance of 2 or more helpers is required for the patient to complete the activity. If activity was not attempted, code reason: 7-Patient Refused. 9-Not Applicable-not attempted and the patient did not perform the activity before the current illness, exacerbation or injury. 10-Not Attempted due to Environmental Limitations-(lack of equipment, weather restraints, etc.). 88-Not Attempted due to Medical Conditions or Safety Concerns. Gait Gait Assistive Device: FWW Right Lower Extremity: Right Weight Bearing Status RLE: Full Weight Bearing Left Lower Extremity: Left Weight Bearing Status LLE: Weight Bearing/Tolerated Gait (QC): 4 Distance: 30 feet Stairs #of Steps: 2 Walking Assistive Device: Walker Treatment Rendered Treatment: Therapeutic Exercises, Gait Train, Step Train Exercise Instruction: Quad Sets, Straight Leg Raise, Heel Slides Assessment/Goals Goal Time Frame: 1 Visit Understands HEP: Yes Safe Ambulation: Yes Plan Treatment Plan: Discharge Time Time In: 1115 Time Out: 1127 Total Billed Treatment Time: 12 Billed Treatment Time Visit, SARMAD GARNETT PT Feb 14, 2023 15:39
--- NOTE | 2023-02-14 19:06 | OPERATIVE REPORT ---
DATE OF SERVICE: 02/14/2023 PREOPERATIVE DIAGNOSES: 1. Left knee medial meniscus tear. 2. Left knee chondromalacia of the medial femoral condyle. POSTOPERATIVE DIAGNOSES: 1. Left knee lateral meniscus tear. 2. Left knee chondromalacia of the medial femoral condyle. 3. Left knee chondromalacia of the medial tibial plateau. 4. Left knee chondromalacia of the lateral tibial plateau. PROCEDURES: 1. Left knee arthroscopic partial medial meniscectomy. 2. Left knee arthroscopic chondroplasty of the medial femoral condyle. 3. Left knee arthroscopic chondroplasty of the medial tibial plateau. 4. Left knee arthroscopic chondroplasty of the lateral tibial plateau. SURGEON: Isac Barriga MD MULTIFOCAL BUTTON GRINDER: SARAH King, who assisted throughout the procedure and closed the incisions. ANESTHESIA: General endotracheal by Sebastián Montaño CRNA. TOURNIQUET TIME: Not applicable. ESTIMATED BLOOD LOSS: Minimal. DRAINS: None. COMPLICATIONS: None. POSTOPERATIVE PLAN: Routine arthroscopy protocol. The patient was transported to the recovery room awake and in stable condition. STATEMENT OF MEDICAL NECESSITY: The patient is a 47-year-old female with complaints of left knee pain, catching, locking, and swelling. She is tender along her medial joint line. She had pain medially with Jessica's. She had a moderate effusion. She had undergone treatment with injections, anti-inflammatories and rest without relief. Due to functional impairment and failure to improve with conservative measures, the patient elected to proceed with surgical intervention. Examination under anesthesia revealed range of motion of 0/0/125 with negative Sonja, negative anterior and posterior drawer. No varus or valgus laxity, negative pivot shift. ARTHROSCOPIC FINDINGS: The medial compartment demonstrated grade II chondral flaps of the central portion of the femoral condyle and tibial plateau in a 15 x 10 area. The ACL and PCL were intact. The patellofemoral joint demonstrated diffuse grade II chondral softening with no unstable chondral flaps. The lateral compartment demonstrated a flap tear of the posterior horn of the lateral meniscus involving approximately 30% of the posterior horn. In addition, there were grade II chondral flaps of the central portion of the lateral tibial plateau in a 12 x 12 area. DESCRIPTION OF PROCEDURE: After risks and benefits of the procedure were discussed and questions were answered and informed consent was signed and placed on the chart, the operative site was confirmed in the preoperative holding area, initialed by the surgeon. The patient was then transported to the operating room and after adequate levels of general endotracheal anesthetic were obtained, a timeout was called, confirming the operative site. An examination under anesthesia was performed with the above findings noted. The left lower extremity was prepped and draped in the usual sterile fashion. The knee joint was injected with 60 mL of fluid and a standard inferolateral portal was placed for the arthroscope and under direct visualization, inferomedial portal was created. The menisci and cruciates were carefully probed with the above findings noted. The unstable chondral flaps on the medial femoral condyle and medial tibial plateau were debrided with a shaver back to a stable edge. The scope was then redirected into the lateral compartment, where the unstable chondral flaps in the lateral tibial plateau were debrided with a shaver back to a stable edge and the posterior horn of the lateral meniscus was debrided with a biter and shaver back to a stable edge. The knee was copiously irrigated. The port sites were closed with 4-0 nylon in a simple interrupted fashion. Knee was injected with Duramorph. The port sites were infiltrated with plain Marcaine. A soft dressing was applied and the patient was transported to the recovery room awake and in stable condition. Job ID: [id number] DocumentID: [id number] Dictated Date: 02/14/2023 08:59:29 Supervisor Publications Date: 02/14/2023 18:25:00 Dictated By: ISAC BARRIGA MD
== END 2023-02-14 11:30 | disposition home or self-care (01) ==
LOC: SDC 06:59
PROVIDERS: ATTEND Orthopaedic Surgery
DX: S83.282A Other tear of lateral meniscus, current injury, left knee, initial encounter (principal); M94.262 Chondromalacia, left knee
CPT/HCPCS: 84703; 87081

== ENCOUNTER 2023-06-26 20:55 | Emergency (ER) | payer MEDICARE, MEDICAID ==
[~2023-06-26] VITALS: Ht 150 cm; Wt 118.0 kg
[2023-06-26] MEDS ORDERED: KETOROLAC INJ 15 MG/ML VIAL IVP ONE (22:15)
[2023-06-26] MEDS ORDERED: NS IV 1000 ML 1,000 ML IV SCH (22:15)
[2023-06-26] MEDS ORDERED: ONDANSETRON INJECTION 4 MG/2 ML (SDV) IVP ONE (22:15)
--- NOTE | 2023-06-26 22:19 | ED GU-Female ---
General Chief Complaint: - Reproductive Stated Complaint: RIGHT FLANK PAIN Nursing Triage Note: Pt presents with c/o R side back and flank pain. She reports started a few days ago, has hx of kidney stones, has attempted tylenol and drinking lots of water without relief. Source: patient Exam Limitations: no limitations (PRERNA PABLO APRN) History of Present Illness Date Seen by Provider: Jun 26, 2023 Time Seen by Provider: 22:07 Initial Comments 47-year-old female presents to the ER with complaint of right flank pain for the last 3 days. She reports history of kidney stones. States that this pain feels either like a kidney stone or kidney infection. She denies fever, abdominal pain, dysuria, hematuria. Does report nausea, no vomiting. (PRERNA PABLO APRN) Allergies and Home Medications Allergies Coded Allergies: lisinopril (Verified Allergy, Severe, 02/14/23) clindamycin (Verified Allergy, Mild, RASH, SWOLLEN FACE, 02/07/23) Patient Home Medication List Home Medication List Reviewed: Yes (PRERNA PABLO APRN) Aspirin (Aspirin Tab) 325 Mg Tab, 325 MG PO DAILY @ 1200, (Reported) Entered as Reported by: AQUILINO HERNADEZ on 12/16/14 0940 Carvedilol (Coreg Tablet) 12.5 Mg Tablet, 12.5 MG PO BID, (Reported) Entered as Reported by: AQUILINO HERNADEZ on 12/16/14 0940 Cyclobenzaprine HCl (Cyclobenzaprine HCl) 10 Mg Tablet, 10 MG PO Q8H PRN for SPASMS Prescribed by: CHRISTIANE RUIZ on 06/27/23 004 Furosemide (Furosemide) 80 Mg Tablet, 80 MG PO BID, (Reported) Entered as Reported by: AQUILINO HERNADEZ on 12/16/14 0940 Ketorolac Tromethamine (Ketorolac Tromethamine) 10 Mg Tablet, 10 MG PO Q6H Prescribed by: CHRISTIANE RUIZ on 06/27/23 004 Levothyroxine Sodium (Levothyroxine Sodium) 100 Mcg Tablet, 100 MCG PO DAILY, (Reported) Entered as Reported by: KALLI AGARWAL on 08/06/14 1330 Magnesium Oxide (Mag Ox 400) 400 Mg Tablet, 400 MG PO BID, (Reported) Entered as Reported by: AQUILINO HERNADEZ on 12/16/14 09 Potassium Chloride (Potassium Chloride) 10 Meq Capsule.sa, 10 MEQ PO BID, (Reported) Entered as Reported by: AQUILINO HERNADEZ on 12/16/14939 Venlafaxine Hcl (Effexor Xr) 150 Mg Cap.sr.24h, 150 MG PO HS, (Reported) Entered as Reported by: AQUILINO HERNADEZ on 12/16/14941 Review of Systems Review of Systems Constitutional: see HPI (PRERNA PABLO APRN) Past Jdoyzqp-Iqmjnl-Miikqu Hx Immunizations Up To Date First/Initial COVID19 Vaccinat: 2021 Second COVID19 Vaccination Ulisses: 2021 Third COVID19 Vaccination Date: 2021 (PRERNA PABLO APRN) Seasonal Allergies Seasonal Allergies: No (PRERNA PABLO APRN) Past Medical History Surgeries: Yes (HERNIA REPAIR (6 YEARS OLD), HEART CATH, THYROID BX) Section, Defibrillator, Pacemaker Respiratory: Yes Sleep Apnea Currently Using CPAP: Yes Currently Using BIPAP: No Cardiac: Yes (HEART FAILURE, DXZ OF AORTIC, MITRAL, AND TRISCUSPID) Cardiomyopathy, Chronic Edema/Swelling, High Cholesterol, Hypertension, Valvular Heart Disease Neurological: Yes Headaches /Migraines Reproductive Disorders: No Genitourinary: No Gastrointestinal: Yes (HERNIA UMBILICAL) Gall Bladder Disease Musculoskeletal: Yes Arthritis Endocrine: Yes ( GOITER) Hypothyroidsim HEENT: No Loss of Vision: Denies Hearing Impairment: Denies Cancer: No Psychosocial: Yes Anxiety, Depression Integumentary: Yes (MULT REDDENED AREAS/SCABS/SORES) Blood Disorders: No Adverse Reaction/Blood Tranf: No (PRERNA PABLO APRN) Family Medical History Alcoholism 19 FATHER FHx: congestive heart failure 19 FATHER GRANDMOTHER Hypertension 19 MOTHER G8 BROTHER G8 BROTHER Thyroid disease AUNT Physical Exam Vital Signs Vital Signs - First Documented 06/26/23 21:36 Temp 37.2 Pulse 71 Resp 18 B/P (MAP) 142/86 (104) (CHRISTIANE RUIZ DO) Vital Signs Capillary Refill : Less Than 3 Seconds (PRERNA PABLO APRN) Height, Weight, BMI Height: 4'11.00" Weight: 250lbs. 8.0oz. [id number]; 52.00 BMI Method:Actual General Appearance: WD/WN, no apparent distress Neck: supple, normal inspection Cardiovascular: regular rate, rhythm Respiratory: lungs clear, normal breath sounds, no respiratory distress, no accessory muscle use Gastrointestinal: normal bowel sounds, non tender, soft Back: CVA tenderness (R), other (Tenderness in right flank area) Extremities: normal range of motion, normal inspection Neurologic/Psychiatric: alert, normal mood/affect Skin: normal color, warm/dry (PRERNA PABLO APRN) Progress/Results/Core Measures Suspected Sepsis SIRS Temperature: Pulse: 71 Respiratory Rate: 18 Laboratory Tests 06/26/23 22:30: White Blood Count 14.6H Blood Pressure 142 /86 Mean: 104 Laboratory Tests 06/26/23 22:30: Creatinine 0.97, Platelet Count 254, Total Bilirubin 0.7 (PRERNA PABLO APRN) Results/Orders Lab Results Laboratory Tests Test 06/26/23 21:51 06/26/23 22:30 Range/Units Urine Color YELLOW Urine Clarity CLEAR Urine pH 5.0 5-9 Urine Specific [place] 1.020 1.016-1.022 Urine Protein NEGATIVE NEGATIVE Urine Glucose (UA) NEGATIVE NEGATIVE Urine Ketones NEGATIVE NEGATIVE Urine Nitrite NEGATIVE NEGATIVE Urine Bilirubin NEGATIVE NEGATIVE Urine Urobilinogen 1.0 < = 1.0 MG/DL Urine Leukocyte Esterase NEGATIVE NEGATIVE Urine RBC (Auto) TRACE H NEGATIVE Urine RBC NONE /HPF Urine WBC RARE /HPF Urine Squamous Epithelial Cells 2-5 /HPF Urine Crystals NONE /LPF Urine Bacteria NEGATIVE /HPF Urine Casts NONE /LPF Urine Mucus SMALL H /LPF Urine Culture Indicated NO Urine Test NEGATIVE NEGATIVE White Blood Count 14.6 H 4.3-11.0 10^3/uL Red Blood Count 3.62 L 3.80-5.11 10^6/uL Hemoglobin 10.5 L 11.5-16.0 g/dL Hematocrit 32 L 35-52 % Mean Corpuscular Volume 89 80-99 fL Mean Corpuscular Hemoglobin 29 25-34 pg Mean Corpuscular Hemoglobin Concent 33 32-36 g/dL Red Cell Distribution Width 13.9 10.0-14.5 % Platelet Count 254 130-400 10^3/uL Mean Platelet Volume 9.2 9.0-12.2 fL Immature Granulocyte % (Auto) 1 % Neutrophils (%) (Auto) 69 42-75 % Lymphocytes (%) (Auto) 20 12-44 % Monocytes (%) (Auto) 8 0-12 % Eosinophils (%) (Auto) 2 0-10 % Basophils (%) (Auto) 1 0-10 % Neutrophils # (Auto) 10.1 H 1.8-7.8 10^3/uL Lymphocytes # (Auto) 2.9 1.0-4.0 10^3/uL Monocytes # (Auto) 1.1 H 0.0-1.0 10^3/uL Eosinophils # (Auto) 0.2 0.0-0.3 10^3/uL Basophils # (Auto) 0.1 0.0-0.1 10^3/uL Immature Granulocyte # (Auto) 0.1 0.0-0.1 10^3/uL Neutrophils % (Manual) 82 % Lymphocytes % (Manual) 13 % Monocytes % (Manual) 5 % Platelet Estimate ADEQUATE Hypochromasia SLIGHT Sodium Level 139 135-145 MMOL/L Potassium Level 3.5 L 3.6-5.0 MMOL/L Chloride Level 99 98-107 MMOL/L Carbon Dioxide Level 28 21-32 MMOL/L Anion Gap 12 5-14 MMOL/L Blood Urea Nitrogen 10 7-18 MG/DL Creatinine 0.97 0.60-1.30 MG/DL Estimat Glomerular Filtration Rate 73 BUN/Creatinine Ratio 10 Glucose Level 153 H 70-105 MG/DL Calcium Level 7.3 L 8.5-10.1 MG/DL Corrected Calcium 7.6 L 8.5-10.1 MG/DL Total Bilirubin 0.7 0.1-1.0 MG/DL Aspartate Amino Transf (AST/SGOT) 13 5-34 U/L Alanine Aminotransferase (ALT/SGPT) 12 0-55 U/L Alkaline Phosphatase 91 40-136 U/L Total Protein 7.3 6.4-8.2 GM/DL Albumin 3.6 3.2-4.5 GM/DL (ARGELIA,CHRISTIANE K DO) My Orders Orders - ARGELIA,CHRISTIANE K DO Rx-Cyclobenzaprine Tablet (Rx-Flexeril T (06/27/23 00:42) Rx-Naproxen (Rx-Naprosyn) (06/27/23 00:42) (ARGELIA,CHRISTIANE K DO) Medications Given in ED Current Medications Medications Dose Ordered Sig/[place] Route Start Time Stop Time Status Last Admin Dose Admin Ketorolac Tromethamine 15 mg ONCE ONCE IVP 06/26/23 22:15 06/26/23 22:17 DC 06/26/23 22:37 15 MG Orphenadrine Citrate 60 mg ONCE ONCE IV 06/26/23 22:30 06/26/23 22:31 DC 06/26/23 22:37 60 MG (CHRISTIANE RUIZ DO) Vital Signs/I&O 06/26/23 21:36 Temp 37.2 Pulse 71 Resp 18 B/P (MAP) 142/86 (104) (CHRISTIANE RUIZ DO) Vital Signs/I&O Capillary Refill : Less Than 3 Seconds (PRERNA PABLO APRN) Blood Pressure Mean: 104 Progress Note : Progress Note Patient seen and evaluated, resting comfortably in bed, no acute distress. Exam and symptoms, differential diagnosis includes but is not limited to nephrolithiasis, pyelonephritis, UTI, musculoskeletal pain. Work-up initiated including CBC, CMP, UA, urine , CT abdomen pelvis. Toradol and Zofran ordered. Was going to order IV fluids, but held off due to patient being on Lasix. 2355 Labs reviewed. CBC shows slightly elevated WBC 14.6, slightly decreased RBC 3.62, decreased hemoglobin 10.5. CMP shows slightly decreased potassium 3.5. Urinalysis shows trace RBCs, negative for infection. Waiting for CT result. Patient handed off to Dr. Ruiz at this time. (PRERNA PABLO APRN) Progress Note : Progress Note 0792--ASSUMED CARE OF PT AT END OF SHIFT. CT RESULTS PENDING PT IS TENDER AND COMPLAINS OF PAIN OVER RIGHT SI JOINT AND NOW PT STATES THIS IS THE SAME PAIN SHE HAS HAD WITH SCIATICA IN THE PAST. DISCUSSED TEST RESULTS, ANTICIPATED COURSE, SYMPTOMATIC TREATMENT, MEDICATIONS, NEED FOR FOLLOW UP AND RETURN PRECAUTIONS PT IS AWARE OF HERNIA AND CHOLELITHIASIS (CHRISTIANE RUIZ DO) Diagnostic Imaging Comments CT ABDOMEN/PELVIS--PER [facility] VIA FAX AT 1443 -NO NEPHROLITHIASIS OR URETERAL STONES -CHOLELITHIASIS -MID ABDOMINAL VENTRAL HERNIA CONTAINING SMALL PORTION OF TRANSVERSE COLON AND OMENTAL MESENTERIC FAT. NO INCARCERATION OR OBSTRUCTION -SIGMOID DIVERTICULOSIS, NO DIVERTICULITIS -IUD Reviewed: Reviewed by Me (CHRISTIANE RUIZ DO) Departure Impression Primary Impression: Pain of right sacroiliac joint Additional Impression: Right flank pain Disposition: 01 HOME, SELF-CARE Condition: Stable Departure-Patient Inst. Decision time for Depature: 00:39 (CHRISTIANE RIUZ DO) Referrals: GORDON RYAN DO (PCP/Family) Primary Care Physician Patient Instructions: Flank Pain (DC), Sacroiliac Joint Pain ED Add. Discharge Instructions: HOME, REST LOTS OF CLEAR LIQUIDS MOIST HEAT TO AREA AT 20 MINUTE INTERVALS FOLLOW UP WITH YOUR DR IN 3-4 DAYS IF NO BETTER All discharge instructions reviewed with patient and/or family. Voiced unde rstanding. Scripts Cyclobenzaprine HCl (Cyclobenzaprine HCl) 10 Mg Tablet 10 MG PO Q8H PRN for SPASMS, #15 TAB 0 Refills Prov: CHRISTIANE RUIZ DO 06/27/23 Ketorolac Tromethamine (Ketorolac Tromethamine) 10 Mg Tablet 10 MG PO Q6H for Pain, #15 TAB Prov: CHRISTIANE RUIZ DO 06/27/23 PRERNA PABLO APRN Jun 26, 2023 22:19 CHRISTIANE RUIZ DO Jun 27, 2023 00:42
[2023-06-26 22:30] LABS: CLARITY,URINE CLEAR; COLOR,URINE YELLOW; GLUCOSE, URINE (UA) NEGATIVE (NEGATIVE); PROTEIN,URINE NEGATIVE (NEGATIVE)
[2023-06-26] MEDS ORDERED: ORPHENADRINE 60 MG/2 ML AMP (ED ONLY) IV ONE (22:30)
[2023-06-26 22:31] LABS: BILIRUBIN,URINE NEGATIVE (NEGATIVE); KETONES,URINE NEGATIVE (NEGATIVE); LEUKOCYTE ESTERASE ,URINE NEGATIVE (NEGATIVE); NITRITE,URINE NEGATIVE (NEGATIVE); WBC,URINE RARE /HPF
[2023-06-26 22:32] LABS: BACTERIA,URINE NEGATIVE /HPF
[2023-06-26 22:39] LABS: BASOPHILS # (AUTO) 0.1 10^3/uL (0.0-0.1); BASOPHILS % (AUTO) 1 % (0-10); EOSINOPHILS # (AUTO) 0.2 10^3/uL (0.0-0.3); EOSINOPHILS % (AUTO) 2 % (0-10); HEMATOCRIT 32 % (35-52); HEMOGLOBIN 10.5 g/dL (11.5-16.0); LYMPHOCYTES # (AUTO) 2.9 10^3/uL (1.0-4.0); LYMPHOCYTES % (AUTO) 20 % (12-44); MEAN CORPUSCULAR HEMOGLOBIN 29 pg (25-34); MEAN CORPUSCULAR HGB CONC 33 g/dL (32-36); MEAN CORPUSCULAR VOLUME 89 fL (80-99); MEAN PLATELET VOLUME 9.2 fL (9.0-12.2); MONOCYTES # (AUTO) 1.1 10^3/uL (0.0-1.0); MONOCYTES % (AUTO) 8 % (0-12); NEUTROPHILS # (AUTO) 10.1 10^3/uL (1.8-7.8); NEUTROPHILS % (AUTO) 69 % (42-75); PLATELET COUNT 254 10^3/uL (130-400); WHITE BLOOD COUNT 14.6 10^3/uL (4.3-11.0)
[2023-06-26 23:12] LABS: ALBUMIN 3.6 GM/DL (3.2-4.5); BILIRUBIN,TOTAL 0.7 MG/DL (0.1-1.0); CALCIUM 7.3 MG/DL (8.5-10.1); CREATININE SERUM 0.97 MG/DL (0.60-1.30); POTASSIUM 3.5 MMOL/L (3.6-5.0); TOTAL PROTEIN 7.3 GM/DL (6.4-8.2)
[2023-06-26 23:14] LABS: HYPOCHROMASIA SLIGHT; LYMPHOCYTES % (MANUAL) 13 %; MONOCYTES % (MANUAL) 5 %; NEUTROPHILS % (MANUAL) 82 %; PLATELET ESTIMATE ADEQUATE
[2023-06-27] MEDS ORDERED: RX-CYCLOBENZAPRINE 10 MG (FLEXERIL) TAB PPK#3 PO STA (00:42)
[2023-06-27] MEDS ORDERED: RX-NAPROXEN (NAPROSYN) 250 MG TAB PPK#4 PO STA (00:42)
[2023-06-27] MEDS ORDERED: KETO10TA PO (00:45)
[2023-06-27] MEDS ORDERED: CYCL10TA25 PO (00:45)
[2023-06-27 00:56] VITALS: BP 166/108
--- NOTE | 2023-06-27 07:18 | Diagnostic Imaging Report ---
PROCEDURE: CT abdomen and pelvis without contrast. TECHNIQUE: Multiple contiguous axial images were obtained through the abdomen and pelvis without the use of intravenous contrast. Auto Exposure Controls were utilized during the CT exam to meet ALARA standards for radiation dose reduction. INDICATION: Kidney stones, abdominal pain COMPARISON: 11/25/2020 FINDINGS: Pacer leads are partially visualized. The visualized lung bases are clear. The heart is mildly enlarged. No significant hiatal hernia. Cholelithiasis. No significant inflammatory stranding about the gallbladder. The liver is borderline enlarged. Otherwise, the unenhanced liver and spleen are unremarkable. The adrenal glands are unremarkable. The pancreas is unremarkable. The bilateral kidneys and ureters are unremarkable. No aneurysmal dilatation of the abdominal aorta. The stomach is unremarkable. Moderate-sized fat-containing complex supraumbilical anterior abdominal wall hernia. However, a diverticulum from a portion of transverse colon is seen extending into a portion of this hernia sac, though there is no resultant bowel obstruction. Mild fat stranding is identified within the hernia sac without significant fluid. Intrauterine device is in place within the central aspect of the uterus. Otherwise, the uterus and adnexal structures are unremarkable for age. Mild colonic diverticulosis without CT evidence of diverticulitis. The appendix is unremarkable. No bowel obstruction or pneumatosis. No significant adenopathy, free air, or free fluid in abdomen or pelvis. 2.6 cm region of sclerosis within the right iliac bone is identified, appearing relatively similar to the prior examination from 2020. Scattered osseous degenerative changes without acute osseous abnormality. Fusion of multiple vertebral bodies within the lower thoracic spine is noted. IMPRESSION: Moderate sized complex supraumbilical midline anterior abdominal wall hernia containing predominantly fat though a small portion of the transverse colon extends into the hernia sac. No bowel obstruction. Cholelithiasis. Intrauterine device is in place. Diverticulosis without CT evidence of diverticulitis. Borderline cardiomegaly. Stable region of sclerosis within the right iliac bone. Given stability for 2 years this suggests a benign process such as a bone island or enchondroma. Additional findings as above. Agree with preliminary interpretation. Dictated by: Dictated on workstation # [id number]
== END 2023-06-27 00:56 | disposition home or self-care (01) ==
LOC: EDUNIT# 20:55 → ER 20:58
DX: M53.3 Sacrococcygeal disorders, not elsewhere classified (principal); K43.9 Ventral hernia without obstruction or gangrene; K57.30 Diverticulosis of large intestine without perforation or abscess without bleeding; K80.20 Calculus of gallbladder without cholecystitis without obstruction; G47.30 Sleep apnea, unspecified; Z99.89 Dependence on other enabling machines and devices; Z98.890 Other specified postprocedural states
CPT/HCPCS: 36415; 74176; 80053; 81000; 84703; 85007; 85027

== ENCOUNTER → 2023-09-25 | Outpatient (CLI) | payer MEDICARE, MEDICAID ==
[~2023-09-25] MED LIST changes: +CATHETER FLUSH 10 ML SYR IV PRN; +CYCL10TA25 PO; +HOLD METFORMIN - RECEIVED CONTRAST 20 ML VIAL IV SCH; +IOHEXOL 350 MG/ML 100 ML (OMNIPAQUE 350) VIAL IV ONE; +KETO10TA PO; +NS 100 ML (IVPB) BAG IV ONE
--- NOTE | 2023-09-25 16:42 | Diagnostic Imaging Report ---
INDICATION: Thoracic aortic aneurysm. TECHNIQUE: Multiple contiguous axial images were obtained through the chest after uneventful bolus administration of intravenous contrast. 3D reconstructed CTA MIP acquisitions were also performed. Auto Exposure Controls were utilized during the CT exam to meet ALARA standards for radiation dose reduction. Comparison made with 01/21/2018. The pulmonary parenchymal vessels are well-opacified with no CT evidence of pulmonary emboli. Pacemaker device is in place. The thoracic aorta appears tortuous. Ascending aorta shows maximal diameter 4.1 cm which is mildly prominent. Aortic arch shows tortuosity but is normal in caliber. The great vessel origins are patent. The descending aorta is normal in caliber. There is thyroid enlargement. There are no enlarged mediastinal nodes or axillary nodes. There is no pleural or pericardial fluid. Visualized portions of the upper abdomen demonstrate cholelithiasis. Lung windows demonstrate no pulmonary parenchymal infiltrates or masses. IMPRESSION: Cardiomegaly. Aorta is mildly aneurysmal in the ascending portion measuring 4.1 cm. Great vessel origins are patent. There is thyroid enlargement. There is no acute process in the chest. Dictated by: Dictated on workstation # [id number]
== END ==
LOC: RAD 12:41
PROVIDERS: ATTEND Internal Medicine Cardiovascular Disease
DX: I11.9 Hypertensive heart disease without heart failure (principal); I71.21 Aneurysm of the ascending aorta, without rupture; I35.1 Nonrheumatic aortic (valve) insufficiency; E04.9 Nontoxic goiter, unspecified
CPT/HCPCS: 71275; C8929; 93306